=== PATIENT | female | born 1995 | race Caucasian/White ===

== ENCOUNTER 2016-07-26 00:39 | Emergency (ER) | payer MEDICAID, OTHER, SELFPAY ==
[~2016-07-26] VITALS: Ht 165.1 cm; Wt 59.0 kg
[~2016-07-26 00:39] MED LIST: ACET50TA PO; IBUP-1114 PO; IBUP600T26 PO; INDERAL PO; METH1VL IV; MIRA255PW PO; PRENTAB9 PO; SENO8.6T9 PO
[2016-07-26 02:29] LABS: CONTROL LINE UCG INT CTR LINE PRESENT
[2016-07-26 02:46] LABS: ANION GAP 11 MEQ/L (8-16); BLOOD UREA NITROGEN 15 MG/DL (7-18); CALCIUM LEVEL 8.5 MG/DL (8.5-10.1); CARBON DIOXIDE LEVEL 26 MEQ/L (21-32); CHLORIDE LEVEL 108 MEQ/L (98-107); CREATININE FOR GFR 0.85 MG/DL (0.55-1.02); GLUCOSE, FASTING 93 MG/DL (70-105); POTASSIUM SERUM 4.1 MEQ/L (3.5-5.1); SODIUM LEVEL 145 MEQ/L (136-145)
[2016-07-26 04:23] VITALS: BP 116/72
--- NOTE | 2016-07-26 20:27 | ECGEPIP ---
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
== END 2016-07-26 04:24 | disposition home or self-care (01) ==
LOC: EDBD 00:39 → M ED 03:09
DX: F41.9 Anxiety disorder, unspecified (principal); R55 Syncope and collapse; Z88.1 Allergy status to other antibiotic agents; Z79.899 Other long term (current) drug therapy

== ENCOUNTER 2016-08-06 20:52 | Emergency (ER) | payer OTHER, SELFPAY ==
[~2016-08-06] VITALS: Ht 165.1 cm; Wt 59.0 kg
[2016-08-06 20:56] VITALS: BP 116/60
[2016-08-06] MEDS ORDERED: PENI250T57 PO (22:10)
[2016-08-06] MEDS ORDERED: NAPROXEN 250 MG TAB PO ONE (22:15)
[2016-08-06] MEDS ORDERED: PENICILLIN V POTASSIUM 500 MG TAB PO ONE (22:15)
== END 2016-08-06 22:38 | disposition home or self-care (01) ==
LOC: M ED 22:32
DX: K04.7 Periapical abscess without sinus (principal); R68.84 Jaw pain; F41.9 Anxiety disorder, unspecified; F32.9 Major depressive disorder, single episode, unspecified; J45.909 Unspecified asthma, uncomplicated; N31.9 Neuromuscular dysfunction of bladder, unspecified; Z87.442 Personal history of urinary calculi; Z87.440 Personal history of urinary (tract) infections; Z88.1 Allergy status to other antibiotic agents

== ENCOUNTER → 2016-08-24 | Outpatient (CLI) | payer OTHER ==
[~2016-08-24] MED LIST changes: +PENI250T57 PO
--- NOTE | 2016-08-24 19:00 | REPUSA ---
Clinical history: bleeding. Findings: Real-time transabdominal and transvaginal ultrasound images of the pelvis were obtained. An anteverted uterus is noted, measuring 7.6 x 3.5 x 5.0 cm. The uterus demonstrates normal echotexture and echogenicity. The endometrial stripe measures 4 mm and is within normal limits. The right ovary measures 3.5 x 1.3 x 2.3 cm. The left ovary measures 2.9 x 2.7 I 2.5 cm. There is a simple left ovari an cyst measuring 1.8 x 1.2 x 1.8 cm. No adnexal masses are seen. Color Doppler flow is seen within b oth ovaries. There is trace amount of free fluid in the cul-de-sac. Impression: Grossly unremarkable ultrasound examination of the pelvis. Simple left ovarian cyst. Phys iologic free fluid in the cul-de-sac.
== END ==
LOC: M RAD 18:04
PROVIDERS: ATTEND Pediatrics
DX: N93.9 Abnormal uterine and vaginal bleeding, unspecified (principal); R10.84 Generalized abdominal pain; N85.4 Malposition of uterus; N83.202 Unspecified ovarian cyst, left side

== ENCOUNTER 2016-12-12 10:23 | Emergency (ER) | payer OTHER ==
[~2016-12-12] VITALS: Ht 165.1 cm; Wt 65.0 kg
[2016-12-12] MEDS ORDERED: NEXP1IMP SC (10:43)
[2016-12-12] MEDS ORDERED: IBUPROFEN 600 MG TAB PO ONE (11:15)
[2016-12-12 11:42] LABS: BASO % 0.6 % (0.0-1.0); EOS % 0.8 % (0.0-3.0); LARGE UNSTAINED CELL # 0.1 K/mm3 (0.0-0.4); LARGE UNSTAINED CELL % 2.1 % (0.0-4.0); LYMPH # 2.1 K/mm3 (1.5-6.5); LYMPH % 38.7 % (24.0-44.0); MEAN CORPUSCULAR HEMOGLOBIN 27.1 pg (27.0-33.0); MEAN CORPUSCULAR HGB CONC 33.8 g/dl (32.0-36.5); MEAN CORPUSCULAR VOLUME 80.2 fl (80.0-96.0); MONO # 0.3 K/mm3 (0.0-0.8); MONO % 5.2 % (0.0-5.0); NEUTROPHILS # 2.7 K/mm3 (1.8-7.7); NEUTROPHILS % 52.6 % (36.0-66.0); PLATELET COUNT, AUTOMATED 293 k/mm3 (150-450); RED CELL DISTRIBUTION WIDTH 14.6 % (11.5-14.5); WHITE BLOOD COUNT 5.1 K/mm3 (4.0-10.0)
[2016-12-12 11:58] LABS: ANION GAP 6 MEQ/L (8-16); BLOOD UREA NITROGEN 10 MG/DL (7-18); CALCIUM LEVEL 9.9 MG/DL (8.5-10.1); CARBON DIOXIDE LEVEL 28 MEQ/L (21-32); CHLORIDE LEVEL 107 MEQ/L (98-107); CREATININE FOR GFR 0.79 MG/DL (0.55-1.02); GLUCOSE, FASTING 92 MG/DL (70-105); POTASSIUM SERUM 4.3 MEQ/L (3.5-5.1); SODIUM LEVEL 141 MEQ/L (136-145)
[2016-12-12 12:21] VITALS: BP 121/63
--- NOTE | 2016-12-12 12:22 | REP ---
PA and lateral chest: Comparisons are 08/09/2014 and 02/10/2014. The lung duncan are clear. The cardiac size is normal The anna, mediastinum, and bony thorax are unremarkable. Impression: Negative PA and lateral chest. There is no interval change. Signed by Je Tim MD 12/12/2016 12:14 P
--- NOTE | 2016-12-13 11:17 | ECGEPIP ---
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
== END 2016-12-12 13:03 | disposition home or self-care (01) ==
LOC: M ED 10:23
DX: R07.89 Other chest pain (principal); M54.9 Dorsalgia, unspecified; N31.9 Neuromuscular dysfunction of bladder, unspecified; F32.9 Major depressive disorder, single episode, unspecified; F41.9 Anxiety disorder, unspecified; R51 Headache; Z88.1 Allergy status to other antibiotic agents

== ENCOUNTER → 2016-12-13 | Outpatient (CLI) | payer OTHER ==
[~2016-12-13] MED LIST changes: +NEXP1IMP SC
--- NOTE | 2016-12-14 16:26 | ECHO ---
DATE OF PROCEDURE: 12/13/2016 REFERRING PHYSICIAN: Dr. Елена King INDICATION: Chest pain, unspecified, shortness of breath. HEIGHT: 65 inches. WEIGHT: 139 pounds. MEASUREMENTS: Ventricular septum: 0.85 cm Posterior wall: 0.76 cm Left ventricle diastole: 4.3 cm Left atrium: 2.8 cm Aortic root: 2.6 cm Aortic annulus: 2.2 cm Inferior vena cava: 1.5 cm (more than 50% respiratory variation). DOPPLER MEASUREMENTS: Aortic valve velocity: 119 cm/s LVOT velocity: 87.2 cm/s LVOT VTI: 17.5 cm Mitral E velocity: 81.4 cm/s Mitral A velocity: 43.4 cm/s Mitral deceleration time: 173 ms Very mild tricuspid regurgitation. Trace pulmonic regurgitation. Pulmonary artery systolic pressure 19 mmHg by pulmonary acceleration time method. MITRAL ANNULAR TISSUE DOPPLER: E prime septal: 12.9 cm/s E prime lateral: 19.2 cm/s DESCRIPTION: Rhythm was sinus. Image quality was adequate. This is a 2D, m-mode, color flow Doppler and pulsed wave Doppler examination and included mitral annular tissue Doppler. CONCLUSIONS: 1. Very small pericardial effusion seen posteriorly. No diastolic chamber collapse. 2. Otherwise normal appearing echocardiogram Doppler. 3. Normal left ventricle, internal dimensions and wall thickness, normal LV wall motion and wall thickening. Normal LV systolic function. Left ventricular ejection fraction (LVEF) 60% by visual estimate. Normal LV diastolic function.
== END ==
LOC: M CARPUL 15:47
PROVIDERS: ATTEND Pediatrics
DX: R07.9 Chest pain, unspecified (principal); R06.02 Shortness of breath; J90 Pleural effusion, not elsewhere classified

== ENCOUNTER → 2017-04-12 | Outpatient (CLI) | payer OTHER, SELFPAY ==
--- NOTE | 2017-04-12 13:52 | REP ---
Clinical: Trauma. Sprain. Technique: AP, lateral, bilateral oblique views of the left ankle. Findings: Mild swelling. No acute fracture or dislocation. Joint spaces and ankle mortise are intact. No subcutaneous emphysema or foreign body. Impression: Mild swelling. No fracture. Signed by Dion West MD 04/12/2017 01:43 P
== END ==
LOC: M WUC 11:01
PROVIDERS: ATTEND Physician Assistant
DX: S93.422A Sprain of deltoid ligament of left ankle, initial encounter (principal); W18.30XA Fall on same level, unspecified, initial encounter; Y92.009 Unspecified place in unspecified non-institutional (private) residence as the place of occurrence of the external cause

== ENCOUNTER → 2017-07-22 | Outpatient (REF) | payer OTHER ==
[2017-07-22 19:48] LABS: APPEARANCE, URINE MANUAL HAZY (CLEAR); BILIRUBIN, URINE MANUAL NEGATIVE (NEGATIVE); BLOOD URINE MANUAL TRACE (NEGATIVE); COLOR, URINE MANUAL YELLOW (YELLOW); GLUCOSE, URINE (UA) MANUAL NEGATIVE (NEGATIVE); KETONE, URINE MANUAL NEGATIVE (NEGATIVE); LEUKOCYTE ESTERASE, URINE MAN TRACE (NEGATIVE); MICROSCOPIC INDICATED? MAN YES (NO); NITRITE, URINE MANUAL POSITIVE (NEGATIVE); PROTEIN, URINE MANUAL NEGATIVE (NEGATIVE); UROBILINOGEN, URINE MANUAL NORMAL (NORMAL)
[2017-07-22 19:50] LABS: AMORPHOUS SEDIMENT, URINE SMALL AMOUNT (NEGATIVE); BACTERIA, URINE LARGE AMOUNT; HYALINE CAST, URINE NONE SEEN /lpf (0-1); MICROSCOPIC EXAM PERFORMED; MUCUS, URINE SMALL AMOUNT (NEGATIVE); RBC, URINE 0-1 /hpf (0-3); SQUAMOUS EPITHELIAL CELL URINE MOD AMOUNT /hpf (SMALL AMT); WBC, URINE 30-40 /hpf (0-3)
== END ==
LOC: M LAB REF 16:56
DX: R53.81 Other malaise (principal)

== ENCOUNTER → 2017-07-22 | Outpatient (CLI) | payer OTHER | LOC: M RAD 16:59 | DX: R05 Cough (principal) ==

== ENCOUNTER → 2017-07-22 | Outpatient (REF) | payer OTHER | LOC: M LAB REF 17:55 | DX: J02.9 Acute pharyngitis, unspecified (principal) ==

== ENCOUNTER → 2017-07-26 | Outpatient (CLI) | payer OTHER | LOC: M RAD 11:15 | DX: B34.2 Coronavirus infection, unspecified (principal) ==

== ENCOUNTER 2017-07-28 13:07 | Emergency (ER) | payer OTHER ==
[2017-07-28] MEDS: ONDANSETRON 4MG/2ML VIAL (J2405) IV ×2 (13:45→14:00)
[2017-07-28 13:46] LABS: BASO # 0.1 10^3/uL (0.0-0.2); BASO % 0.8 % (0.0-1.0); EOS # 0.1 10^3/uL (0.0-0.50); EOS % 0.8 % (0.0-3.0); HEMATOCRIT 36.4 % (36.0-47.0); HEMOGLOBIN 12.1 g/dl (12.0-16.0); IMMATURE GRANULOCYTE % 0.7 % (0-3.0); LYMPH # 3.2 10^3/uL (1.5-6.5); LYMPH % 37.1 % (24.0-44.0); MEAN CORPUSCULAR HEMOGLOBIN 29.2 pg (27.0-33.0); MEAN CORPUSCULAR HGB CONC 33.2 g/dl (32.0-36.5); MEAN CORPUSCULAR VOLUME 87.7 fl (80.0-96.0); MONO # 0.5 10^3/uL (0.0-0.8); MONO % 6.3 % (0.0-5.0); NEUTROPHILS # 4.7 10^3/uL (1.8-7.7); NEUTROPHILS % 54.3 % (36.0-66.0); PLATELET COUNT, AUTOMATED 332 10^3/uL (150-450); RED BLOOD COUNT 4.15 10^6/uL (4.00-5.40); RED CELL DISTRIBUTION WIDTH 12.5 % (11.5-14.5); WHITE BLOOD COUNT 8.6 10^3/uL (4.0-10.0)
[2017-07-28] MEDS: KETOROLAC 30 MG/ML VIAL (J1885) IV (13:46)
[2017-07-28] MEDS: NS 1,000 ML IV (13:46)
[2017-07-28 13:53] LABS: CONTROL LINE UCG INT CTR LINE PRESENT; URINE PREG TEST NEGATIVE (NEGATIVE)
[2017-07-28 13:55] LABS: BILIRUBIN, URINE MANUAL NEGATIVE (NEGATIVE); BLOOD URINE MANUAL RFX POSITIVE (NEGATIVE); GLUCOSE, URINE (UA) MANUAL NEGATIVE (NEGATIVE); KETONE, URINE MANUAL NEGATIVE (NEGATIVE); MICROSCOPIC EXAM QNS; NITRITE, URINE MANUAL RFX NEGATIVE (NEGATIVE); PROTEIN, URINE MANUAL REFLEX 1+ mg/dL (NEGATIVE); URINE COMMENT Y; UROBILINOGEN, URINE MANUAL NORMAL (NORMAL)
[2017-07-28 14:13] LABS: ALBUMIN 3.6 GM/DL (3.2-5.2); ALBUMIN/GLOBULIN RATIO 1.06 (1.00-1.93); ALKALINE PHOSPHATASE 72 U/L (45-117); ALT/SGPT 22 U/L (12-78); ANION GAP 6 MEQ/L (8-16); AST/SGOT 8 U/L (7-37); BILIRUBIN,DIRECT < 0.1 MG/DL (0.0-0.2); BILIRUBIN,TOTAL 0.2 MG/DL (0.2-1.0); BLOOD UREA NITROGEN 12 MG/DL (7-18); CALCIUM LEVEL 8.5 MG/DL (8.5-10.1); CARBON DIOXIDE LEVEL 27 MEQ/L (21-32); CHLORIDE LEVEL 110 MEQ/L (98-107); CREATININE FOR GFR 0.89 MG/DL (0.55-1.30); GLUCOSE, FASTING 91 MG/DL (70-100); LIPASE 135 U/L (73-393); POTASSIUM SERUM 3.8 MEQ/L (3.5-5.1); SODIUM LEVEL 143 MEQ/L (136-145)
[2017-07-28 15:04] LABS: CALCIUM OXALATE CRYSTALS RFX SMALL; KETONE, URINE AUTO RFX NEGATIVE (NEGATIVE); LEUKOCYTE ESTERASE UR AUTO RFX NEGATIVE (NEGATIVE); MUCUS, URINE RFX LARGE (NEGATIVE); NITRITE, URINE AUTO RFX NEGATIVE (NEGATIVE); RBC, URINE AUTO RFX 31 /HPF (0-3); SQUAM EPITHELIAL CELL UR AURFX 1 /HPF (0-6); WBC, URINE AUTO RFX 6 /HPF (0-3)
[2017-07-28] MEDS: NORCO, ANEXSIA 5/325MG TABLET (HYDROcodone/ACETAMINOPHEN) PO (15:16)
== END 2017-07-28 15:18 | disposition home or self-care (01) ==
LOC: M ED 13:07
DX: N20.1 Calculus of ureter (principal); R10.32 Left lower quadrant pain; R11.2 Nausea with vomiting, unspecified; F32.9 Major depressive disorder, single episode, unspecified; R51 Headache; Z87.442 Personal history of urinary calculi; Z79.899 Other long term (current) drug therapy; Z88.1 Allergy status to other antibiotic agents
CPT/HCPCS: J2405

== ENCOUNTER → 2017-07-29 | Outpatient (CLI) | payer OTHER | LOC: M EKG 16:51 | DX: R07.9 Chest pain, unspecified (principal) | CPT/HCPCS: 93005 ==

== ENCOUNTER → 2017-07-31 | Outpatient (CLI) | payer OTHER | LOC: M CARPUL 13:30 | DX: R07.9 Chest pain, unspecified (principal) | CPT/HCPCS: 93306 ==

== ENCOUNTER → 2017-08-01 | Outpatient (REF) | payer OTHER ==
[2017-08-01 20:31] LABS: APPEARANCE, URINE MANUAL CLEAR (CLEAR); COLOR, URINE MANUAL COLORLESS (YELLOW)
[2017-08-01 20:32] LABS: BILIRUBIN, URINE MANUAL NEGATIVE (NEGATIVE); BLOOD URINE MANUAL POSITIVE (NEGATIVE); GLUCOSE, URINE (UA) MANUAL NEGATIVE (NEGATIVE); KETONE, URINE MANUAL NEGATIVE (NEGATIVE); LEUKOCYTE ESTERASE, URINE MAN NEGATIVE (NEGATIVE); MICROSCOPIC INDICATED? MAN YES (NO); NITRITE, URINE MANUAL NEGATIVE (NEGATIVE); PROTEIN, URINE MANUAL NEGATIVE (NEGATIVE); SPECIFIC GRAVITY,URINE MANUAL 1.005 (1.002-1.035); UROBILINOGEN, URINE MANUAL NORMAL (NORMAL)
[2017-08-01 21:20] LABS: SQUAMOUS EPITHELIAL CELL URINE SMALL AMOUNT /hpf (SMALL AMT); WBC, URINE 0-1 /hpf (0-3)
[2017-08-01 21:21] LABS: MUCUS, URINE SMALL AMOUNT (NEGATIVE)
[2017-08-01 21:22] LABS: BACTERIA, URINE NONE SEEN; HYALINE CAST, URINE NONE SEEN /lpf (0-1); MICROSCOPIC EXAM PERFORMED
== END ==
LOC: M LAB REF 17:05
DX: N20.0 Calculus of kidney (principal)

== ENCOUNTER 2017-09-27 14:06 | Emergency (ER) | payer OTHER | END 2017-09-27 15:29 | disposition home or self-care (01) | LOC: M ED 14:06 | DX: S40.012A Contusion of left shoulder, initial encounter (principal); S10.93XA Contusion of unspecified part of neck, initial encounter; W01.10XA Fall on same level from slipping, tripping and stumbling with subsequent striking against unspecified object, initial encounter; Y92.099 Unspecified place in other non-institutional residence as the place of occurrence of the external cause; Y93.9 Activity, unspecified; Y99.9 Unspecified external cause status; Z88.1 Allergy status to other antibiotic agents | CPT/HCPCS: 73030 ==

== ENCOUNTER 2018-02-10 20:58 | Emergency (ER) | payer OTHER ==
[2018-02-10 22:18] LABS: KETONE, URINE AUTO RFX TRACE mg/dL (NEGATIVE); LEUKOCYTE ESTERASE UR AUTO RFX NEGATIVE (NEGATIVE); NITRITE, URINE AUTO RFX NEGATIVE (NEGATIVE); RBC, URINE AUTO RFX 0 /HPF (0-3); SPECIFIC GRAVITY UR AUTO RFX 1.003 (1.002-1.035); SQUAM EPITHELIAL CELL UR AURFX 0 /HPF (0-6); WBC, URINE AUTO RFX 1 /HPF (0-3)
[2018-02-11] MEDS: ACETAMINOPHEN TAB 650MG DOSE (2X325MG) PO (00:48)
[2018-02-11] MEDS: NS 1,000 ML IV (00:48)
[2018-02-11 00:56] LABS: BASO # 0.1 10^3/uL (0.0-0.2); BASO % 0.7 % (0.0-1.0); EOS # 0.1 10^3/uL (0.0-0.50); EOS % 0.8 % (0.0-3.0); HEMATOCRIT 38.8 % (36.0-47.0); IMMATURE GRANULOCYTE % 0.2 % (0-3.0); LYMPH % 34.2 % (24.0-44.0); MEAN CORPUSCULAR HGB CONC 33.5 g/dl (32.0-36.5); MEAN CORPUSCULAR VOLUME 86.6 fl (80.0-96.0); MONO # 0.6 10^3/uL (0.0-0.8); MONO % 6.8 % (0.0-5.0); NEUTROPHILS % 57.3 % (36.0-66.0); PLATELET COUNT, AUTOMATED 296 10^3/uL (150-450); RED BLOOD COUNT 4.48 10^6/uL (4.00-5.40); RED CELL DISTRIBUTION WIDTH 12.6 % (11.5-14.5); WHITE BLOOD COUNT 8.8 10^3/uL (4.0-10.0)
[2018-02-11 01:20] LABS: ANION GAP 6 MEQ/L (8-16); BLOOD UREA NITROGEN 11 MG/DL (7-18); CALCIUM LEVEL 8.9 MG/DL (8.5-10.1); CARBON DIOXIDE LEVEL 25 MEQ/L (21-32); CHLORIDE LEVEL 106 MEQ/L (98-107); CREATININE FOR GFR 0.77 MG/DL (0.55-1.30); GLOMERULAR FILTRATION RATE > 60.0 (>60); GLUCOSE, FASTING 84 MG/DL (70-100); HCG, SERUM QUANTITATIVE 10040 MIU/ML; SODIUM LEVEL 137 MEQ/L (136-145)
== END 2018-02-11 02:02 | disposition home or self-care (01) ==
LOC: M ED 20:58
DX: S30.1XXA Contusion of abdominal wall, initial encounter (principal); W50.0XXA Accidental hit or strike by another person, initial encounter; Y92.219 Unspecified school as the place of occurrence of the external cause; Z33.1 Pregnant state, incidental
CPT/HCPCS: 76801

== ENCOUNTER → 2018-02-28 | Outpatient (CLI) | payer OTHER ==
[2018-02-28 18:27] LABS: BASO # 0.1 10^3/uL (0.0-0.2); BASO % 0.7 % (0.0-1.0); EOS % 0.4 % (0.0-3.0); HEMATOCRIT 37.5 % (36.0-47.0); HEMOGLOBIN 12.5 g/dl (12.0-15.5); IMMATURE GRANULOCYTE % 0.2 % (0-3.0); LYMPH # 1.7 10^3/uL (1.5-6.5); LYMPH % 20.5 % (24.0-44.0); MEAN CORPUSCULAR HEMOGLOBIN 29.4 pg (27.0-33.0); MEAN CORPUSCULAR HGB CONC 33.3 g/dl (32.0-36.5); MEAN CORPUSCULAR VOLUME 88.2 fl (80.0-96.0); MONO # 0.5 10^3/uL (0.0-0.8); MONO % 5.9 % (0.0-5.0); NEUTROPHILS # 5.8 10^3/uL (1.8-7.7); NEUTROPHILS % 72.3 % (36.0-66.0); PLATELET COUNT, AUTOMATED 294 10^3/uL (150-450); RED BLOOD COUNT 4.25 10^6/uL (4.00-5.40); RED CELL DISTRIBUTION WIDTH 12.9 % (11.5-14.5); WHITE BLOOD COUNT 8.1 10^3/uL (4.0-10.0)
[2018-02-28 22:45] LABS: CHLAMYDIA DNA AMPLIFICATION POSITIVE (NEGATIVE); GC DNA AMPLIFICATION NEGATIVE (NEGATIVE)
[2018-03-03 10:46] LABS: HBsAg Prenatal NEGATIVE (NEGATIVE); HIV 1&2 SCREEN CENTAUR NEGATIVE (NEGATIVE); RUBELLA IgG QUALITATIVE IMMUNE (IMMUNE)
[2018-03-03 10:46] LABS: HEPATITIS C VIRUS ABY INDEX < 0.0 INDEX (<0.8)
== END ==
LOC: M SMT 10:56
DX: Z34.81 Encounter for supervision of other normal pregnancy, first trimester (principal); Z3A.09 9 weeks gestation of pregnancy
CPT/HCPCS: 86762

== ENCOUNTER 2018-03-24 13:32 | Emergency (ER) | payer OTHER ==
[2018-03-24 14:55] LABS: BASO % 0.4 % (0.0-1.0); EOS % 0.3 % (0.0-3.0); HEMATOCRIT 35.1 % (36.0-47.0); IMMATURE GRANULOCYTE % 0.4 % (0-3.0); LYMPH % 22.1 % (24.0-44.0); MEAN CORPUSCULAR HEMOGLOBIN 29.9 pg (27.0-33.0); MEAN CORPUSCULAR HGB CONC 34.2 g/dl (32.0-36.5); MEAN CORPUSCULAR VOLUME 87.3 fl (80.0-96.0); MONO # 0.5 10^3/uL (0.0-0.8); MONO % 5.1 % (0.0-5.0); NEUTROPHILS # 6.5 10^3/uL (1.8-7.7); NEUTROPHILS % 71.7 % (36.0-66.0); PLATELET COUNT, AUTOMATED 268 10^3/uL (150-450); RED BLOOD COUNT 4.02 10^6/uL (4.00-5.40); RED CELL DISTRIBUTION WIDTH 13.1 % (11.5-14.5)
[2018-03-24 14:57] LABS: KETONE, URINE AUTO RFX 1+ mg/dL (NEGATIVE); MUCUS, URINE RFX SMALL (NEGATIVE); NITRITE, URINE AUTO RFX NEGATIVE (NEGATIVE); RBC, URINE AUTO RFX 3 /HPF (0-3); SPECIFIC GRAVITY UR AUTO RFX 1.014 (1.002-1.035); SQUAM EPITHELIAL CELL UR AURFX 6 /HPF (0-6)
[2018-03-24 14:58] LABS: LEUKOCYTE ESTERASE UR AUTO RFX 3+ (NEGATIVE); WBC, URINE AUTO RFX 14 /HPF (0-3)
[2018-03-24 15:29] LABS: ANION GAP 7 MEQ/L (8-16); BLOOD UREA NITROGEN 6 MG/DL (7-18); CARBON DIOXIDE LEVEL 24 MEQ/L (21-32); CHLORIDE LEVEL 106 MEQ/L (98-107); CREATININE FOR GFR 0.52 MG/DL (0.55-1.30); GLOMERULAR FILTRATION RATE > 60.0 (>60); GLUCOSE, FASTING 76 MG/DL (70-100); POTASSIUM SERUM 4.3 MEQ/L (3.5-5.1); SODIUM LEVEL 137 MEQ/L (136-145)
[2018-03-24] MEDS: NS 1,000 ML IV (16:04)
[2018-03-24] MEDS: METOCLOPRAMIDE INJ 10MG/2ML VIAL (J2765) IV (16:04)
== END 2018-03-24 17:48 | disposition home or self-care (01) ==
LOC: M ED 13:32
DX: O23.41 Unspecified infection of urinary tract in pregnancy, first trimester (principal); Z3A.12 12 weeks gestation of pregnancy; Z88.1 Allergy status to other antibiotic agents
CPT/HCPCS: J2765

== ENCOUNTER → 2018-03-25 | Outpatient (REF) | payer OTHER ==
[2018-03-25 15:49] LABS: CHLAMYDIA DNA AMPLIFICATION NEGATIVE (NEGATIVE); GC DNA AMPLIFICATION NEGATIVE (NEGATIVE)
== END ==
LOC: M LAB REF 13:13
DX: Z34.81 Encounter for supervision of other normal pregnancy, first trimester (principal); Z36.89 Encounter for other specified antenatal screening

== ENCOUNTER 2018-05-11 11:51 | Emergency (ER) | payer OTHER ==
[~2018-05-11] VITALS: Ht 167.6 cm; Wt 68.2 kg
[~2018-05-11 11:51] MED LIST changes: +ALBU83IN; +AMOX/K; +MACR100C43 PO; +MAPA500T2 PO; +NAPR-50 PO; +NITR100C2; +NORCOTAB PO; +PRED20TA; +PRENMIS3 PO; +REGL10TA6 PO; +ZOFR4TAB14 PO
[2018-05-11 13:08] LABS: BASO % 0.3 % (0.0-1.0); EOS # 0.1 10^3/uL (0.0-0.50); HEMATOCRIT 35.5 % (36.0-47.0); HEMOGLOBIN 11.8 g/dl (12.0-15.5); LYMPH # 1.9 10^3/uL (1.5-6.5); LYMPH % 21.1 % (24.0-44.0); MEAN CORPUSCULAR HEMOGLOBIN 30.2 pg (27.0-33.0); MEAN CORPUSCULAR HGB CONC 33.2 g/dl (32.0-36.5); MEAN CORPUSCULAR VOLUME 90.8 fl (80.0-96.0); MONO # 0.6 10^3/uL (0.0-0.8); MONO % 6.2 % (0.0-5.0); NEUTROPHILS # 6.3 10^3/uL (1.8-7.7); NEUTROPHILS % 70.7 % (36.0-66.0); PLATELET COUNT, AUTOMATED 287 10^3/uL (150-450); RED BLOOD COUNT 3.91 10^6/uL (4.00-5.40); WHITE BLOOD COUNT 8.9 10^3/uL (4.0-10.0)
[2018-05-11 13:29] LABS: ALBUMIN 3.2 GM/DL (3.2-5.2); ALT/SGPT 13 U/L (12-78); BILIRUBIN,TOTAL 0.3 MG/DL (0.2-1.0); BLOOD UREA NITROGEN 7 MG/DL (7-18); CALCIUM LEVEL 8.5 MG/DL (8.5-10.1); CARBON DIOXIDE LEVEL 25 MEQ/L (21-32); CHLORIDE LEVEL 107 MEQ/L (98-107); CREATININE FOR GFR 0.61 MG/DL (0.55-1.30); GLOMERULAR FILTRATION RATE > 60.0 (>60); GLUCOSE, FASTING 78 MG/DL (70-100); POTASSIUM SERUM 4.3 MEQ/L (3.5-5.1); SODIUM LEVEL 139 MEQ/L (136-145); TOTAL PROTEIN 6.3 GM/DL (6.4-8.2)
--- NOTE | 2018-05-11 14:20 | REP ---
Clinical: well-being. Abdominal pain. Comparison: 02/10/2018 . Findings: Examination demonstrates a single live intrauterine in breech presentation. motion is identified by technologist. Placenta is noted anterior and grade 0 without evidence for placenta previa or abruption. Amniotic fluid volume is normal. Cervix measures 4.0 cm in length and appears closed. Gestational age by LMP 19 weeks 2 days with ELISABET 10/03/2018 . FHR equals 143 beats per minute. Impression: Single live intrauterine in breech presentation. No gross abnormality identified. Amniotic fluid volume within normal limits. Electronically Signed by Dion West MD 05/11/2018 02:12 P
--- NOTE | 2018-05-11 14:23 | REP ---
Clinical: with Right lower quadrant pain. Technique: Real time walters scale and color evaluation using curved array transducer including Doppler evaluation of the bilateral maternal ovaries. Findings: Left ovary is normal in appearance and vascularity without torsion and measures 4.0 x 1.6 x 2.9 cm; RI 0.46. The right adnexa demonstrates prominent vasculature extending along the right lateral fundal region of the uterus which are nonspecific. The appendix is not visualized. No obvious free fluid is appreciated. Suspected right ovary measures 2.5 x 0.8 x 1.7 cm and demonstrates appropriate vascularity. Impression: 1. Appendix not visualized. No free fluid. 2. Normal appearance to the left ovary without torsion. Suspected right ovary appears normal. Electronically Signed by Dion West MD 05/11/2018 02:16 P
[2018-05-11 15:06] LABS: CHLAMYDIA DNA AMPLIFICATION NEGATIVE (NEGATIVE); GC DNA AMPLIFICATION NEGATIVE (NEGATIVE)
[2018-05-11 15:34] VITALS: BP 99/58
== END 2018-05-11 15:49 | disposition home or self-care (01) ==
LOC: M ED 11:51
DX: O26.892 Other specified pregnancy related conditions, second trimester (principal); R10.2 Pelvic and perineal pain; O99.342 Other mental disorders complicating pregnancy, second trimester; F33.9 Major depressive disorder, recurrent, unspecified; F41.9 Anxiety disorder, unspecified; O99.89 Other specified diseases and conditions complicating pregnancy, childbirth and the puerperium; N31.9 Neuromuscular dysfunction of bladder, unspecified; Z3A.19 19 weeks gestation of pregnancy; Z88.1 Allergy status to other antibiotic agents

== ENCOUNTER → 2018-06-19 | Outpatient (CLI) | payer OTHER ==
--- NOTE | 2018-06-19 17:40 | REP ---
Obstetric ultrasound for anatomy: There is a single intrauterine gestation in a vertex presentation. There is motion and cardiac activity. The heart rate is 139 beats per minute. The placenta is anterior. There is no placenta previa. The placenta is grade zero maturity. The amniotic fluid volume subjectively is normal. The cervix measures 3.7 cm length. By the ultrasound today gestational age is 24 weeks 3 days with an ELISABET of 10/06/2018. By LMP gestational age is 24 weeks 6 days with an ELISABET of 10/03/2018. weight is 745 grams (1 pound 16 ounces). This is the 43rd percentile for 24 weeks 6 days. The following anatomic structures are identified and are unremarkable: Cranium Choroid plexus Cavum septum pellucidum. Cerebellum Face Upper lip. Lungs Four-chamber heart. Left cardiac ventricular outflow tracts. Diaphragm. Stomach. Cord insertion. Three-vessel cord. Kidneys Bladder Spine Upper lower extremities. The following anatomic structures are not optimally demonstrated because of position: upper lip. Facial profile A followup study dedicated to these structures might be considered. Otherwise, there are no anomalies. Electronically Signed by Je Tim MD 06/19/2018 05:32 P
== END ==
LOC: M RAD 15:53
PROVIDERS: ATTEND Advanced Practice Midwife
DX: Z34.82 Encounter for supervision of other normal pregnancy, second trimester (principal)

== ENCOUNTER → 2018-06-21 | Outpatient (REF) | payer OTHER | LOC: M LAB REF 12:18 | PROVIDERS: ATTEND Physician Assistant | DX: J02.9 Acute pharyngitis, unspecified (principal) ==

== ENCOUNTER → 2018-07-14 | Outpatient (CLI) | payer OTHER ==
[2018-07-14 14:33] LABS: BASO # 0.1 10^3/uL (0.0-0.2); BASO % 0.4 % (0.0-1.0); EOS # 0.1 10^3/uL (0.0-0.50); EOS % 0.6 % (0.0-3.0); HEMATOCRIT 32.5 % (36.0-47.0); HEMOGLOBIN 10.6 g/dl (12.0-15.5); LYMPH # 1.9 10^3/uL (1.5-6.5); MEAN CORPUSCULAR HEMOGLOBIN 30.1 pg (27.0-33.0); MEAN CORPUSCULAR HGB CONC 32.6 g/dl (32.0-36.5); MEAN CORPUSCULAR VOLUME 92.3 fl (80.0-96.0); MONO # 0.8 10^3/uL (0.0-0.8); MONO % 6.4 % (0.0-5.0); NEUTROPHILS # 8.7 10^3/uL (1.8-7.7); NEUTROPHILS % 74.8 % (36.0-66.0); PLATELET COUNT, AUTOMATED 286 10^3/uL (150-450); RED BLOOD COUNT 3.52 10^6/uL (4.00-5.40); WHITE BLOOD COUNT 11.6 10^3/uL (4.0-10.0)
== END ==
LOC: M LAB 12:50
PROVIDERS: ATTEND Advanced Practice Midwife
DX: Z34.82 Encounter for supervision of other normal pregnancy, second trimester (principal)

== ENCOUNTER 2018-07-26 11:32 | Outpatient (CLI) | payer OTHER ==
[~2018-07-26] VITALS: Ht 167.6 cm; Wt 75.4 kg
== END 2018-07-26 13:26 | disposition home or self-care (01) ==
LOC: M LDO 11:32
PROVIDERS: ATTEND Specialist
DX: O26.893 Other specified pregnancy related conditions, third trimester (principal); R10.30 Lower abdominal pain, unspecified; Z3A.30 30 weeks gestation of pregnancy
CPT/HCPCS: 59025; G0378; G0463

== ENCOUNTER → 2018-09-10 | Outpatient (CLI) | payer OTHER ==
[~2018-09-10] MED LIST changes: -ACET50TA PO; +HYDR-3715 PO; +MAPA500T17 PO; -MIRA255PW PO; -NAPR-50 PO; +NAPR-837 PO; -NORCOTAB PO; +POLY1POW4 PO
== END ==
LOC: M LAB 12:57
PROVIDERS: ATTEND Advanced Practice Midwife
DX: Z34.83 Encounter for supervision of other normal pregnancy, third trimester (principal); Z3A.00 Weeks of gestation of pregnancy not specified

== ENCOUNTER 2018-09-12 14:56 | Outpatient (CLI) | payer OTHER ==
[~2018-09-12] VITALS: Ht 167.6 cm; Wt 79.7 kg
[~2018-09-12 14:56] MED LIST changes: +TAMSULOSIN 0.4 MG CAP PO SCH
[2018-09-12 15:17] VITALS: BP 124/60
[2018-09-12] MEDS ORDERED: MAPA500T2 PO (15:22)
[2018-09-12] MEDS ORDERED: ACETAMINOPHEN 500 MG TAB PO PRN (15:45)
[2018-09-12] MEDS ORDERED: LACTATED RINGER'S 1000 ML IV ONE (16:00)
[2018-09-12 18:42] LABS: APPEARANCE, URINE CLEAR (CLEAR); BACTERIA, URINE AUTO NEGATIVE (NEGATIVE); BILIRUBIN, URINE AUTO NEGATIVE (NEGATIVE); BLOOD, URINE BLOOD 1+ (NEGATIVE); COLOR, URINE YELLOW (YELLOW); GLUCOSE, URINE (UA) AUTO NEGATIVE (NEGATIVE); KETONE, URINE AUTO NEGATIVE (NEGATIVE); LEUKOCYTE ESTERASE, URINE AUTO NEGATIVE (NEGATIVE); MUCUS, URINE SMALL (NEGATIVE); NITRITE, URINE AUTO NEGATIVE (NEGATIVE); PROTEIN, URINE AUTO NEGATIVE (NEGATIVE); RBC, URINE AUTO 26 /HPF (0-3); SPECIFIC GRAVITY URINE AUTO 1.019 (1.002-1.035); SQUAMOUS EPITHELIAL CELL UR AU 4 /HPF (0-6); UROBILINOGEN, URINE AUTO 0.2 mg/dL (0.0-2.0); WBC, URINE AUTO 3 /HPF (0-3)
[2018-09-12 19:09] VITALS: BP 118/57
[2018-09-12] MEDS ORDERED: PROMETHAZINE INJ 25 MG/ML VIAL (J2550) IV ONE (19:15)
[2018-09-12] MEDS ORDERED: BUTORPHANOL 2 MG/ML INJ (J0595) IV ONE (19:15)
--- NOTE | 2018-09-12 19:47 | IPN ---
DATE: 09/12/2018 Rhea is a 22-year-old 2, para 1-0-0-1 at 37 weeks gestation, estimated date of confinement (EDC ) of 10/03/2018 based on last menstrual period and confirmed by first trimester ultrasound. She presents to labor and delivery today following evaluation in the office as an outpatient for complaint of lower left back pain in the sacral area, started last night. Currently the pain is a scale of 5 out of 10. She denies any regular contractions, vaginal bleeding and leakage of fluid. The fetus has been active. She denies any urinary signs or symptoms. She denies any unusual vaginal discharge, odor, irritation. Her care was initiated at [facility] in the first trimester. course complicated by positive chlamydia that was treated during this and a test of cure on 03/25/2018 was negative. OBSTETRICAL HISTORY: January 2016: 38-4/7 weeks, 7 pound 7 ounce male, spontaneous vaginal delivery. OBSTETRIC LABS: A+, antibody screen negative, rubella immune, VDRL nonreactive. Urine culture no growth. Hepatitis B surface antigen negative. HIV negative. Hepatitis C antibody nonreactive. Initial gonorrhea and chlamydia: Chlamydia positive. Gonorrhea negative. Test of cure negative Chlamydia, negative gonorrhea. She did not have any genetic screening labs done. Her gestational diabetic screening was normal at 105. GBS is negative. PAST MEDICAL HISTORY. Negative. SURGERIES: None. FAMILY HISTORY: Kidney disease, liver disease, depression, anxiety and asthma. SOCIAL HISTORY: The patient is , father of the baby is at bedside and supportive. She is a nonsmoker. Denies alcohol and drug use. No history of abuse - physical, sexual or emotional. Positive history of chlamydia. ALLERGIES: DOXYCYCLINE. CURRENT MEDICATIONS: vitamin. OBJECTIVE: Temperature 98.1, pulse 92, respirations 20, blood pressure is 124/60. heart rate is 130 with moderate variability, positive accelerations, no decelerations. There is no pattern of regular contractions. Sterile vaginal exam was done in the office. She was 3-4 cm dilated, 80% effaced, -3 station. She has undergone renal ultrasound that demonstrates a moderate right-sided hydronephrosis with an intrarenal calculus upper pole of the right kidney measuring 6 x 5 x 8 mm. Her UA: Blood 1+ and RBCs 26. CBC: White count 11.6, hemoglobin 9.4, hematocrit 29.1, platelets 286. Potassium 4.3. ASSESSMENT: Intrauterine at 37 weeks. heart rate category one. Renal calculi. PLAN: IV hydration, Flomax by mouth, some IV pain medications at this time, nonstress test (NST) every 12 hours. Observe. The patient and her partner have had all their questions answered and agree with the plan. BASIL
[2018-09-13 02:59] VITALS: BP 121/58
== END 2018-09-13 03:40 | disposition home or self-care (01) ==
LOC: M LDO 14:56
PROVIDERS: ATTEND Advanced Practice Midwife
DX: O26.893 Other specified pregnancy related conditions, third trimester (principal); Z3A.37 37 weeks gestation of pregnancy; Z87.442 Personal history of urinary calculi
CPT/HCPCS: 59025; 81001; 96374; 96375; G0378; G0463; J0595

== ENCOUNTER → 2018-09-12 | Outpatient (CLI) | payer OTHER ==
--- NOTE | 2018-09-12 14:06 | REP ---
RENAL ULTRASOUND: Real-time sonographic evaluation of kidneys performed. Kidneys are normal in size and echotexture, right kidney measuring 11.8 x 4.9 x 4.7 cm and left kidney 11.9 x 5.2 x 5.5 cm. There is moderate right hydronephrosis. Calculus in the upper pole of the right renal collecting system measures 6 x 5 x 8 mm. No left hydronephrosis or nephrolithiasis is seen. Urinary bladder is empty. Patient is 37 weeks and the fetus has a heart rate of 124 beats per minute. IMPRESSION: Moderate right hydronephrosis. Intrarenal calculus upper pole right kidney measures 6 x 5 x 8 mm. Electronically Signed by Je Galindo MD 09/15/2018 01:38 P
[2018-09-12 14:29] LABS: HEMATOCRIT 29.1 % (36.0-47.0); HEMOGLOBIN 9.4 g/dl (12.0-15.5); MEAN CORPUSCULAR HEMOGLOBIN 28.5 pg (27.0-33.0); MEAN CORPUSCULAR HGB CONC 32.3 g/dl (32.0-36.5); MEAN CORPUSCULAR VOLUME 88.2 fl (80.0-96.0); PLATELET COUNT, AUTOMATED 286 10^3/uL (150-450); WHITE BLOOD COUNT 11.6 10^3/uL (4.0-10.0)
[2018-09-12 14:54] LABS: ALBUMIN 2.8 GM/DL (3.2-5.2); BLOOD UREA NITROGEN 7 MG/DL (7-18); CALCIUM LEVEL 8.4 MG/DL (8.5-10.1); CARBON DIOXIDE LEVEL 21 MEQ/L (21-32); CHLORIDE LEVEL 108 MEQ/L (98-107); CREATININE FOR GFR 0.48 MG/DL (0.55-1.30); GLOMERULAR FILTRATION RATE > 60.0 (>60); GLUCOSE, FASTING 66 MG/DL (70-100); PHOSPHORUS LEVEL 3.3 MG/DL (2.5-4.9); POTASSIUM SERUM 4.3 MEQ/L (3.5-5.1); SODIUM LEVEL 139 MEQ/L (136-145)
== END ==
LOC: M RAD 12:47
PROVIDERS: ATTEND Advanced Practice Midwife
DX: Z34.83 Encounter for supervision of other normal pregnancy, third trimester (principal); Z3A.00 Weeks of gestation of pregnancy not specified; N20.0 Calculus of kidney; N13.1 Hydronephrosis with ureteral stricture, not elsewhere classified

== ENCOUNTER → 2018-09-12 | Outpatient (REF) | payer OTHER | LOC: M LAB REF 13:25 | PROVIDERS: ATTEND Advanced Practice Midwife | DX: Z34.83 Encounter for supervision of other normal pregnancy, third trimester (principal) ==

== ENCOUNTER 2018-09-24 16:01 | Inpatient (IN) | payer OTHER, MEDICAID ==
[~2018-09-24] VITALS: Ht 167.6 cm; Wt 79.4 kg
[~2018-09-24 16:01] MED LIST changes: -TAMSULOSIN 0.4 MG CAP PO SCH
[2018-09-24 16:10] VITALS: BP 120/58
[2018-09-24] MEDS ORDERED: LR 1,000 ML IV SCH (16:24)
[2018-09-24] MEDS ORDERED: LACTATED RINGER'S 1000 ML IV STA (16:24)
[2018-09-24] MEDS ORDERED: OXYTOCIN 30 UNITS IN 0.9% NaCl 500ML IV BAG (J2590) As Ordered ONE ×2 (16:33→17:52)
[2018-09-24 16:34] VITALS: BP 120/58
--- NOTE | 2018-09-24 17:00 | HPE ---
DATE OF ADMISSION: 09/24/2018 Rhea is a 22-year-old 2, para 1-0-0-1 at 38-5/7 weeks gestation with an estimated date of confinement (EDC) of 10/03/2018 based on last menstrual period and confirmed by first trimester ultrasound. She presents to labor and delivery today with report of onset of uncomfortable contractions at 1400. She reports some old bloody show. Denies leakage of fluid. The fetus has been active. Her care was initiated at [facility] in the first trimester. Her course complicated by a positive Chlamydia during her with a test of cure on 03/25/2018 that is negative and a renal calculi recently. OBSTETRICAL HISTORY: January 2016 38-4/7 weeks, 7-pound, 7-ounce male, spontaneous vaginal delivery. OBSTETRIC LABORATORY DATA: A+, antibody screen negative, rubella immune, VDRL nonreactive. Urine culture no growth. Hepatitis B surface antigen negative, HIV negative. Hepatitis C nonreactive. Initial chlamydia positive with a test of cure negative. Gonorrhea negative. She did decline genetic serum screening laboratories. Gestational diabetic screen normal at 105. GBS is negative. PAST MEDICAL HISTORY: Renal calculi. SURGERIES: None. FAMILY HISTORY: Kidney disease, liver disease, depression, anxiety and asthma. SOCIAL HISTORY: The patient is single. However, father of the baby is at bedside as well as some family members and they are supportive. She is a nonsmoker. Denies alcohol and drug use. No history of abuse, physical, sexual or emotional and a positive history of chlamydia. ALLERGIES: DOXYCYLINE. CURRENT MEDICATIONS: vitamin. OBJECTIVE: Vital signs have not been recorded at this time. Her blood pressure is 120/58, pulse 83. She is alert and oriented times three. She appears very uncomfortable with her contractions. She is crying and moaning through them. heart rate is 140 with moderate variability, positive accelerations noted. No decelerations noted. Contractions are about every three minutes. They palpate strong. Her abdomen is gravid. Estimated weight 7-1/2 pounds, cephalic presentation. Sterile vaginal examination: By RNSrinivas, 5 cm dilated, 100% effaced, 0 station. ASSESSMENT: Intrauterine at 38-5/7 weeks, heart rate category 1, active labor. PLAN: Admit the patient to labor and delivery. Out of bed ad matthew. Clear liquid diet. Routine laboratories. IV fluid bolus. The patient is considering an epidural for her labor coping at this time. I do anticipate continued progress and a normal spontaneous vaginal delivery.
[2018-09-24 17:07] LABS: HEMOGLOBIN 9.4 g/dl (12.0-15.5); MEAN CORPUSCULAR HEMOGLOBIN 28.1 pg (27.0-33.0); MEAN CORPUSCULAR HGB CONC 32.4 g/dl (32.0-36.5); MEAN CORPUSCULAR VOLUME 86.8 fl (80.0-96.0); PLATELET COUNT, AUTOMATED 281 10^3/uL (150-450); RED BLOOD COUNT 3.34 10^6/uL (4.00-5.40); WHITE BLOOD COUNT 16.1 10^3/uL (4.0-10.0)
[2018-09-24] MEDS ORDERED: FENTANYL 2MCG/ML ROPIVACAINE 0.2% IN 0.9% NACL 100ML IVBAG As Ordered ONE (17:28)
[2018-09-24] MEDS ORDERED: ePHEDrine SULFATE 25 MG/5 ML(5MG/ML) SYRINGE IV PRN (18:15)
[2018-09-24] MEDS ORDERED: EPIDURAL/PCA KEYS XX PRN (18:15)
[2018-09-24] MEDS ORDERED: LACTATED RINGER'S 1000 ML IV PRN (18:15)
[2018-09-24] MEDS ORDERED: NALOXONE INJ 0.4 MG/1 ML VIAL (J2310) IV PRN (18:15)
[2018-09-24] MEDS ORDERED: ONDANSETRON 4MG/2ML VIAL (J2405) IV PRN (18:15)
[2018-09-24] MEDS ORDERED: EPIDURAL COMMENT XX SCH (18:15)
[2018-09-24] MEDS ORDERED: REFRIGERATOR IV KEYS XX PRN (18:15)
[2018-09-24] MEDS ORDERED: diphenhydrAMINE INJ 50MG/ML VIAL (J1200) IV PRN (18:15)
[2018-09-24] MEDS ORDERED: FENTANYL/ROPIVACAINE/NACL BAG 100 ML EPIDURAL SCH (18:15)
[2018-09-24 18:22] VITALS: BP 106/63
[2018-09-24 18:32] LABS: CORD GAS ABE A -5.7; CORD GAS HCO3 A 22.1 MEQ/L; CORD GAS O2 SAT A < 15.0 %; CORD GAS PCO2 A 51.7 mmHg; CORD GAS PH A 7.248 UNITS; CORD GAS PO2 A < 10.0 mmHg; CORD GAS TCO2 A 23.6 MEQ/L
[2018-09-24 18:48] VITALS: BP 123/80
[2018-09-24] MEDS ORDERED: OXYTOCIN DRIP 30 UNITS in APPROPRIATE DILUENT 1 EA IV SCH (18:48)
[2018-09-24 18:50] LABS: CORD GAS ABE V -6.8; CORD GAS HCO3 V 19.3 MEQ/L; CORD GAS O2 SAT V 28.4 %; CORD GAS PCO2 V 40.5 mmHg; CORD GAS PH V 7.295 UNITS; CORD GAS PO2 V 14.4 mmHg; CORD GAS SBC V 17.4 MEQ/L; CORD GAS TCO2 V 20.5 MEQ/L
[2018-09-24] MEDS ORDERED: RHOGAM 300 MCG (1500 IU) INJ (J2790) IM SCH (19:00)
[2018-09-24] MEDS ORDERED: ACETAMINOPHEN TAB 650MG DOSE (2X325MG) PO PRN (19:00)
[2018-09-24] MEDS ORDERED: DOCUSATE SODIUM 100 MG CAP PO PRN (19:00)
[2018-09-24] MEDS ORDERED: LIDOCAINE 1% MDV 20ML VIAL INFIL ONE (19:00)
[2018-09-24] MEDS ORDERED: DIBUCAINE 1% OINTMENT 30GM TOP PRN (19:00)
[2018-09-24] MEDS ORDERED: METHYLERGONOVINE MALEATE 0.2 MG TAB PO PRN (19:00)
[2018-09-24] MEDS ORDERED: IBUPROFEN 800 MG TAB PO PRN (19:00)
[2018-09-24] MEDS ORDERED: ACETAMINOPHEN 500 MG TAB PO PRN (19:00)
[2018-09-24] MEDS ORDERED: MEASLES,MUMPS,RUBELLA VACCINE INJ (MMR-II) (90707) SC SCH (19:00)
[2018-09-24] MEDS ORDERED: IBUPROFEN 600 MG TAB PO PRN (19:00)
--- NOTE | 2018-09-24 20:29 | DN ---
DATE OF DELIVERY: 09/24/2018 Rhea is a 22-year-old 2, para 2-0-0-2 now who was admitted to labor and delivery in active labor. She coped with her labor physiologically. She reached full dilation at 1816 hours. She pushed to a normal spontaneous vaginal delivery of a live female infant in right occiput anterior (LORI) position with restitution to left occiput transverse (LOT) position at 1822 hours. There was no nuchal cord. The shoulders delivered with gentle downward traction and the corpus immediately followed. The 's mouth and nares were bulb suctioned. She was placed on maternal abdomen crying and active. The cord was clamped times two and cut by the father of the baby under my direction. Cord gases and cord blood was obtained. A spontaneous expulsion of an intact placenta with three-vessel cord by Matos mechanism was at 1827 hours. Uterine hemostasis was achieved with IV Pitocin rapid infusion and uterine fundal massage. Estimated blood loss 350 mL. Perineum and vagina inspected and noted to have a first-degree midline laceration. The laceration was infiltrated with 1% lidocaine and repaired with #3-0 Rapide in the usual fashion. Arterial cord gas 7.248, base access -5.7. Venous cord gas is pending. female weighed 3670 grams, 8 pounds 1 ounce. 8 and 9. The family have named her Rosie and the mother is going to breastfeed her daughter. At the close of delivery lap counts, needle counts and instrument counts were correct and verified.
[2018-09-24 21:14] VITALS: BP 119/78
[2018-09-25 06:18] VITALS: BP 106/56
[2018-09-25] MEDS: PRENATAL VITAMINS CHEWABLE TABLET PO SCH (09:29)
[2018-09-25 18:00] VITALS: BP 118/62
[2018-09-26 06:00] VITALS: BP 97/52
[2018-09-26] MEDS ORDERED: IBUP-1114 PO (08:33)
[2018-09-26] MEDS ORDERED: MAPA500T2 PO (08:33)
[2018-09-26] MEDS: PRENATAL VITAMINS CHEWABLE TABLET PO SCH (09:31)
[2018-09-26] MEDS ORDERED: ADACEL/BOOSTRIX VACCINE (DIPHTH/PERTUSS/ACELL/TETANUS)0.5ML SYR (90715) IM ONE (09:45)
== END 2018-09-26 15:15 | disposition home or self-care (01) | DRG 560 ==
LOC: M LDO 16:01 → M LDI 16:21 → M OBS 20:15
PROVIDERS: ADMIT Advanced Practice Midwife; ATTEND Advanced Practice Midwife
PROC: 10E0XZZ Delivery of Products of Conception, External Approach (ICD-10-PCS; principal; 2018-09-24)
PROC: 0HQ9XZZ Repair Perineum Skin, External Approach (ICD-10-PCS; 2018-09-24)
DX: O70.0 First degree perineal laceration during delivery (principal); Z37.0 Single live birth; Z3A.38 38 weeks gestation of pregnancy

== ENCOUNTER 2018-10-26 12:40 | Emergency (ER) | payer OTHER ==
[~2018-10-26] VITALS: Ht 167.6 cm; Wt 69.2 kg
[2018-10-26] MEDS ORDERED: KETOROLAC 30 MG/ML VIAL (J1885) IV ONE (13:15)
[2018-10-26] MEDS ORDERED: ONDANSETRON 4MG/2ML VIAL (J2405) IV ONE (13:15)
[2018-10-26] MEDS ORDERED: NS 1,000 ML IV ONE (13:15)
[2018-10-26 13:19] LABS: BASO # 0.1 10^3/uL (0.0-0.2); BASO % 0.8 % (0.0-1.0); EOS # 0.2 10^3/uL (0.0-0.50); EOS % 2.3 % (0.0-3.0); HEMATOCRIT 35.5 % (36.0-47.0); LYMPH # 2.6 10^3/uL (1.5-6.5); LYMPH % 32.8 % (24.0-44.0); MEAN CORPUSCULAR HEMOGLOBIN 26.6 pg (27.0-33.0); MEAN CORPUSCULAR VOLUME 85.7 fl (80.0-96.0); MONO # 0.7 10^3/uL (0.0-0.8); MONO % 9.1 % (0.0-5.0); NEUTROPHILS # 4.3 10^3/uL (1.8-7.7); NEUTROPHILS % 54.6 % (36.0-66.0); PLATELET COUNT, AUTOMATED 293 10^3/uL (150-450); RED BLOOD COUNT 4.14 10^6/uL (4.00-5.40); WHITE BLOOD COUNT 7.9 10^3/uL (4.0-10.0)
[2018-10-26 13:21] LABS: URINE PREG TEST NEGATIVE (NEGATIVE)
[2018-10-26 13:54] LABS: ALBUMIN 3.3 GM/DL (3.2-5.2); ALT/SGPT 19 U/L (12-78); BILIRUBIN,DIRECT < 0.1 MG/DL (0.0-0.2); BILIRUBIN,TOTAL 0.2 MG/DL (0.2-1.0); BLOOD UREA NITROGEN 15 MG/DL (7-18); CALCIUM LEVEL 8.4 MG/DL (8.5-10.1); CARBON DIOXIDE LEVEL 27 MEQ/L (21-32); CHLORIDE LEVEL 109 MEQ/L (98-107); CREATININE FOR GFR 0.86 MG/DL (0.55-1.30); GLOMERULAR FILTRATION RATE > 60.0 (>60); GLUCOSE, FASTING 85 MG/DL (70-100); LIPASE 125 U/L (73-393); POTASSIUM SERUM 4.4 MEQ/L (3.5-5.1); SODIUM LEVEL 145 MEQ/L (136-145); TOTAL PROTEIN 6.8 GM/DL (6.4-8.2)
--- NOTE | 2018-10-26 14:14 | REP ---
CT ABDOMEN AND PELVIS WITHOUT CONTRAST: HISTORY: Right flank pain. COMPARISON: 07/28/2017 The gallbladder is contracted. There is moderate to marked dilatation of the right renal collecting system and proximal ureter. This is secondary to an 8 mm calculus present in the proximal ureter at the L3 level. Calcification is present in the left kidney consistent with nephrolithiasis. The liver, pancreas, spleen, and adrenal glands are normal in appearance. There is no mass, adenopathy or free fluid. The visualized lungs are clear. The urinary bladder and uterus are normal in appearance. IMPRESSION: 1. There is an 8 mm calculus in the proximal right ureter at the L3 level. There is moderate to marked hydronephrosis. 2. Left nephrolithiasis. Electronically Signed by Evert Rader MD 10/26/2018 02:22 P
[2018-10-26] MEDS ORDERED: PERC5TAB12 PO (14:23)
[2018-10-26] MEDS ORDERED: ZOFR4TAB16 PO (14:23)
[2018-10-26 14:27] VITALS: BP 123/62
== END 2018-10-26 14:30 | disposition home or self-care (01) ==
LOC: M ED 12:40
DX: N21.1 Calculus in urethra (principal); N20.1 Calculus of ureter; N20.0 Calculus of kidney; J45.909 Unspecified asthma, uncomplicated; N31.9 Neuromuscular dysfunction of bladder, unspecified; F60.9 Personality disorder, unspecified; Z88.0 Allergy status to penicillin
CPT/HCPCS: 74176; 80048; 80076; 81001; 83690; 84703; 85025; 96374; 96375; 99284; J1885; J2405

== ENCOUNTER → 2018-10-28 | Outpatient (REF) | payer OTHER ==
[~2018-10-28] MED LIST changes: +PERC5TAB12 PO; +ZOFR4TAB16 PO
[2018-10-28 18:38] LABS: APPEARANCE, URINE CLEAR (CLEAR); BACTERIA, URINE AUTO NEGATIVE (NEGATIVE); BILIRUBIN, URINE AUTO NEGATIVE (NEGATIVE); BLOOD, URINE BLOOD 1+ (NEGATIVE); COLOR, URINE STRAW (YELLOW); GLUCOSE, URINE (UA) AUTO NEGATIVE (NEGATIVE); KETONE, URINE AUTO NEGATIVE (NEGATIVE); LEUKOCYTE ESTERASE, URINE AUTO TRACE (NEGATIVE); MUCUS, URINE SMALL (NEGATIVE); NITRITE, URINE AUTO NEGATIVE (NEGATIVE); PROTEIN, URINE AUTO NEGATIVE (NEGATIVE); RBC, URINE AUTO 16 /HPF (0-3); SPECIFIC GRAVITY URINE AUTO 1.009 (1.002-1.035); SQUAMOUS EPITHELIAL CELL UR AU 1 /HPF (0-6); UROBILINOGEN, URINE AUTO 0.2 mg/dL (0.0-2.0); WBC, URINE AUTO 6 /HPF (0-3)
== END ==
LOC: M SMT 17:41
PROVIDERS: ATTEND Nurse Practitioner Women's Health
DX: N13.2 Hydronephrosis with renal and ureteral calculous obstruction (principal)

== ENCOUNTER 2018-11-04 18:50 | Emergency (ER) | payer OTHER ==
[~2018-11-04] VITALS: Ht 167.6 cm; Wt 68.2 kg
[2018-11-04] MEDS ORDERED: KETOROLAC 30 MG/ML VIAL (J1885) IV ONE (19:15)
[2018-11-04] MEDS ORDERED: NS 1,000 ML IV ONE (19:15)
[2018-11-04] MEDS ORDERED: ONDANSETRON 4MG/2ML VIAL (J2405) IV ONE (19:15)
[2018-11-04 19:42] LABS: BASO % 0.3 % (0.0-1.0); EOS % 0.1 % (0.0-3.0); HEMATOCRIT 37.8 % (36.0-47.0); HEMOGLOBIN 11.8 g/dl (12.0-15.5); LYMPH # 1.2 10^3/uL (1.5-6.5); LYMPH % 9.5 % (24.0-44.0); MEAN CORPUSCULAR HEMOGLOBIN 26.7 pg (27.0-33.0); MEAN CORPUSCULAR HGB CONC 31.2 g/dl (32.0-36.5); MEAN CORPUSCULAR VOLUME 85.5 fl (80.0-96.0); MONO # 0.6 10^3/uL (0.0-0.8); MONO % 4.5 % (0.0-5.0); NEUTROPHILS # 10.5 10^3/uL (1.8-7.7); NEUTROPHILS % 85.2 % (36.0-66.0); PLATELET COUNT, AUTOMATED 293 10^3/uL (150-450); RED BLOOD COUNT 4.42 10^6/uL (4.00-5.40); WHITE BLOOD COUNT 12.3 10^3/uL (4.0-10.0)
[2018-11-04 20:17] LABS: ALBUMIN 4.1 GM/DL (3.2-5.2); BILIRUBIN,DIRECT 0.2 MG/DL (0.0-0.2); BILIRUBIN,TOTAL 0.5 MG/DL (0.2-1.0); TOTAL PROTEIN 7.7 GM/DL (6.4-8.2)
[2018-11-04] MEDS ORDERED: KETO10TAB PO (21:44)
[2018-11-04 21:53] VITALS: BP 120/67
--- NOTE | 2018-11-05 10:32 | REP ---
Acute abdominal series four views including PA chest, two abdomen upright views of the abdomen, supine view: PA chest: Comparison is 07/26/2017. The lung duncan are clear. Cardiac size is normal. The anna, mediastinum, skeletal structures are unremarkable. There is no free subdiaphragmatic air. There is no interval change. Impression: Negative PA chest. Abdomen, supine upright views: The bowel gas pattern is normal. There is a calcification on the right at the level of the L3 inferior endplate, similar in position of the abdomen and pelvis CT scan dated 10/26/2018. There are phleboliths in the pelvis on the left, unchanged. 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 Impression: Right ureteral calculus as described, unchanged in location. Phleboliths in the pelvis on the left. 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 Electronically Signed by Je Tim MD 11/05/2018 10:23 A
== END 2018-11-04 21:54 | disposition home or self-care (01) ==
LOC: M ED 18:50
DX: N21.1 Calculus in urethra (principal); Z87.442 Personal history of urinary calculi; Z87.440 Personal history of urinary (tract) infections; Z88.1 Allergy status to other antibiotic agents
CPT/HCPCS: 74021; 80047; 80076; 83690; 84702; 85025; 96361; 96374; 96375; 99284; J1885; J2405

== ENCOUNTER → 2018-11-05 | Outpatient (CLI) | payer OTHER ==
[~2018-11-05] MED LIST changes: +KETO10TAB PO
[2018-11-05 15:48] LABS: HEMATOCRIT 32.7 % (36.0-47.0); HEMOGLOBIN 10.1 g/dl (12.0-15.5); MEAN CORPUSCULAR HGB CONC 30.9 g/dl (32.0-36.5); MEAN CORPUSCULAR VOLUME 84.3 fl (80.0-96.0); PLATELET COUNT, AUTOMATED 281 10^3/uL (150-450); RED BLOOD COUNT 3.88 10^6/uL (4.00-5.40); WHITE BLOOD COUNT 5.7 10^3/uL (4.0-10.0)
[2018-11-05 15:58] LABS: INR 1.14; PROTHROMBIN TIME 14.3 SECONDS (11.8-14.0)
[2018-11-05 15:59] LABS: PARTIAL THROMBOPLASTIN TIME 26.3 SECONDS (25.0-38.4)
[2018-11-05 16:15] LABS: BLOOD UREA NITROGEN 16 MG/DL (7-18); CARBON DIOXIDE LEVEL 30 MEQ/L (21-32); CHLORIDE LEVEL 108 MEQ/L (98-107); CREATININE FOR GFR 0.94 MG/DL (0.55-1.30); GLOMERULAR FILTRATION RATE > 60.0 (>60); GLUCOSE, FASTING 78 MG/DL (70-100); POTASSIUM SERUM 4.4 MEQ/L (3.5-5.1); SODIUM LEVEL 143 MEQ/L (136-145)
[2018-11-05 16:55] LABS: HCG, SERUM QUALITATIVE NEGATIVE (NEGATIVE)
== END ==
LOC: M LAB 15:13
PROVIDERS: ATTEND Nurse Practitioner Women's Health
DX: N13.2 Hydronephrosis with renal and ureteral calculous obstruction (principal)

== ENCOUNTER 2018-11-06 11:16 | Day surgery (SDC) | payer OTHER ==
[~2018-11-06] VITALS: Ht 167.6 cm; Wt 69.4 kg
[2018-11-06] MEDS ORDERED: ONDANSETRON 4MG/2ML VIAL (J2405) As Ordered ONE (11:49)
[2018-11-06] MEDS ORDERED: dexameTHASONE 4 MG/ML 1ML VIAL (J1100) As Ordered ONE (11:49)
[2018-11-06] MEDS ORDERED: LIDOCAINE 2% INJ 100 MG/5 ML SDV (FOR ANES.) As Ordered ONE (11:50)
[2018-11-06] MEDS ORDERED: PROPOFOL 200 MG/20 ML VIAL As Ordered ONE (11:50)
[2018-11-06 11:54] LABS: URINE PREG TEST NEGATIVE (NEGATIVE)
[2018-11-06] MEDS ORDERED: LR 1,000 ML IV ONE (12:00)
[2018-11-06] MEDS ORDERED: MIDAZOLAM INJ 2 MG/2 ML VIAL (J2250) As Ordered ONE (12:25)
[2018-11-06] MEDS ORDERED: fentaNYL 100 MCG/2 ML INJECTION (J3010) As Ordered ONE (12:25)
[2018-11-06] MEDS ORDERED: CONRAY-60 60% 50ML VIAL (Q9961) As Ordered ONE (12:57)
[2018-11-06] MEDS ORDERED: ePHEDrine SULFATE 25 MG/5 ML(5MG/ML) SYRINGE As Ordered ONE (13:22)
[2018-11-06] MEDS ORDERED: ACETAMINOPHEN 1000MG 100ML IV BTL (OFIRMEV) (J0131 PER 10MG) As Ordered ONE (13:22)
[2018-11-06] MEDS ORDERED: PERCOCET 5MG/325MG TAB PO PRN ×2 (14:15)
[2018-11-06] MEDS ORDERED: oxyBUTYnin 5 MG TAB PO PRN (14:15)
--- NOTE | 2018-11-06 14:21 | REP ---
RETROGRADE PYELOGRAM: Two views. HISTORY: Kidney stone. 12 seconds of fluoroscopy time is reported. FINDINGS: A sequence of two last image hold fluoroscopically obtained spot radiographs of the right abdomen document right ureteral cannulation, contrast injection, and double pigtail stent placement. Electronically Signed by Landon Kelley MD 11/06/2018 02:24 P
[2018-11-06] MEDS ORDERED: fentaNYL 100 MCG/2 ML INJECTION (J3010) IV PRN (14:30)
[2018-11-06] MEDS ORDERED: ONDANSETRON 4MG/2ML VIAL (J2405) IV PRN (14:30)
[2018-11-06] MEDS ORDERED: LR 1,000 ML IV SCH (14:30)
[2018-11-06] MEDS ORDERED: oxyCODONE 5MG TAB PO PRN (14:30)
[2018-11-06 16:27] VITALS: BP 136/83
--- NOTE | 2018-11-08 09:52 | RO ---
DATE OF PROCEDURE: 11/06/2018 PREPROCEDURE DIAGNOSIS: Right ureteral stone. POSTPROCEDURE DIAGNOSIS: Right ureteral stone. PROCEDURE: Cystoscopy, right ureteroscopy with laser lithotripsy and basket extraction of stones, right retrograde pyelogram with intraoperative interpretation of images, right ureteral stent placement. SURGEON: Baldo Angelo MD HOME CARE CONSULTANT: None. ANESTHESIA: General. OPERATIVE INDICATIONS: This 22-year-old female was found to have an 8 mm obstructing right ureteral stone. Given the concern the stone was migrating distally, it was recommended not to do a shock wave lithotripsy and instead bring her to the operating room today for the above listed procedure. DESCRIPTION OF PROCEDURE: The patient was brought to the operating room and general anesthesia was induced. Prophylactic antibiotics were infused. She was then placed in dorsal lithotomy position, prepped and draped in the usual sterile fashion. A rigid cystoscope was inserted into the urethral meatus and advanced into the bladder. A Guidewire was advanced up the right collecting system. I then went up the right collecting system with a short semirigid ureteroscope and examined the distal to midureter and no stones were seen. I then removed the short semirigid ureteroscope. I then advanced a ureteral access sheath over the wire. I went up the access sheath with a flexible ureteroscope and within the proximal ureter the 8 mm stone was seen impacted. I then utilized a 272 micron laser fiber to fragment the stone into small pieces. All the fragments were then removed using a basket. I then went into the kidney and examined the kidney and no additional stones were seen. A retrograde pyelogram was performed, was notable for moderate to severe right hydronephrosis and no extravasation. I then went through the ureteroscope along with the access sheath and once again, no stones were seen within the ureter. I then utilized the wire to advance a 6 Brazilian by 22-32 cm JJ ureteral stent up to the right collecting system. The wire was removed and there were adequate curls of the stent in the right renal pelvis and in the bladder. The bladder was emptied of all fluids and this marked the conclusion of the procedure. The patient was taken out of dorsal lithotomy position, awakened from anesthesia and transferred to the recovery room in stable condition. ESTIMATED BLOOD LOSS: 5 mL. COMPLICATIONS: None. SPECIMENS: Kidney stone fragments. PLAN: The patient will follow-up in the clinic in 1-2 weeks for stent removal. BASIL
== END 2018-11-06 16:25 | disposition home or self-care (01) ==
LOC: M SDC 11:16
PROVIDERS: ATTEND Urology
DX: N13.2 Hydronephrosis with renal and ureteral calculous obstruction (principal); J45.909 Unspecified asthma, uncomplicated; G43.909 Migraine, unspecified, not intractable, without status migrainosus; F41.9 Anxiety disorder, unspecified; F32.9 Major depressive disorder, single episode, unspecified; Z88.1 Allergy status to other antibiotic agents; Z79.899 Other long term (current) drug therapy
CPT/HCPCS: 52356; 74420; 84703; 88300; C1769; C1894; C2617; J0131; J0690; J1100; J2250; J2405; J3010; Q9961

== ENCOUNTER 2019-05-20 00:27 | Emergency (ER) | payer OTHER ==
[~2019-05-20] VITALS: Ht 167.6 cm; Wt 68.2 kg
[2019-05-20 01:40] LABS: BASO # 0.1 10^3/uL (0.0-0.2); BASO % 0.9 % (0.0-1.0); EOS # 0.1 10^3/uL (0.0-0.5); HEMATOCRIT 39.7 % (36.0-47.0); HEMOGLOBIN 12.8 g/dl (12.0-15.5); LYMPH # 3.2 10^3/uL (1.5-5.0); LYMPH % 48.1 % (24.0-44.0); MEAN CORPUSCULAR HEMOGLOBIN 29.2 pg (27.0-33.0); MEAN CORPUSCULAR HGB CONC 32.2 g/dl (32.0-36.5); MEAN CORPUSCULAR VOLUME 90.4 fl (80.0-96.0); MONO # 0.5 10^3/uL (0.0-0.8); MONO % 7.7 % (0.0-5.0); NEUTROPHILS # 2.7 10^3/uL (1.5-8.5); NEUTROPHILS % 41.1 % (36.0-66.0); PLATELET COUNT, AUTOMATED 297 10^3/uL (150-450); RED BLOOD COUNT 4.39 10^6/uL (4.00-5.40); WHITE BLOOD COUNT 6.7 10^3/uL (4.0-10.0)
[2019-05-20 01:51] LABS: INR 1.05; PARTIAL THROMBOPLASTIN TIME 28.3 SECONDS (25.0-38.4); PROTHROMBIN TIME 13.4 SECONDS (11.8-14.0)
--- NOTE | 2019-05-20 01:51 | REPVR ---
PROCEDURE INFORMATION: Exam: CT Head Without Contrast Exam date and time: 05/20/2019 1:09 AM Age: 23 years old Clinical indication: Injury or trauma; Fall; Initial encounter; Concussion / head injury; Additional info: Syncope TECHNIQUE: Imaging protocol: Computed tomography of the head without contrast. Radiation optimization: All CT scans at this facility use at least one of these dose optimization techniques: automated exposure control; mA and/or kV adjustment per patient size (includes targeted exams where dose is matched to clinical indication); or iterative reconstruction. COMPARISON: CT Head without contrast 08/09/2014 10:05 AM FINDINGS: Brain: Normal. No hemorrhage. Unremarkable white matter. No mass effect. Ventricles: Normal. No ventriculomegaly. Bones/joints: Unremarkable. No acute fracture. Sinuses: Visualized sinuses are unremarkable. No fluid levels. Mastoid air cells: Visualized mastoid air cells are well aerated. Soft tissues: Unremarkable. IMPRESSION: No acute intracranial abnormality. Electronically signed by: Faisal Alanis On 05/20/2019 01:51:15 AM
--- NOTE | 2019-05-20 01:56 | REPVR ---
PROCEDURE INFORMATION: Exam: CT Cervical Spine Without Contrast Exam date and time: 05/20/2019 1:13 AM Age: 23 years old Clinical indication: Injury or trauma; Fall; Initial encounter; Concussion /head injury; Additional info: Fall down stairs, vertebral tenderness, dizziness TECHNIQUE: Imaging protocol: Computed tomography images of the cervical spine without contrast. Radiation optimization: All CT scans at this facility use at least one of these dose optimization techniques: automated exposure control; mA and/or kV adjustment per patient size (includes targeted exams where dose is matched to clinical indication); or iterative reconstruction. COMPARISON: CT Neck with contrast 08/23/2017 1:10 PM FINDINGS: Vertebrae: No acute fracture. Normal alignment. Discs/Spinal canal/Neural foramina: No spinal stenosis. No neural foraminal narrowing. Soft tissues: Unremarkable. Lungs: Lung apices are normal. IMPRESSION: No acute findings. Electronically signed by: Faisal Alanis On 05/20/2019 01:56:37 AM
[2019-05-20 02:00] LABS: AMPHETAMINES LEVEL URINE NEGATIVE (NEGATIVE); BARBITURATES URINE NEGATIVE (NEGATIVE); BENZODIAZEPINES URINE NEGATIVE (NEGATIVE); CANNABINOIDS URINE NEGATIVE (NEGATIVE); COCAINE METABOLITE URINE NEGATIVE (NEGATIVE); METHADONE URINE NEGATIVE (NEGATIVE); OPIATES URINE NEGATIVE (NEGATIVE); PHENCYCLIDINE URINE NEGATIVE (NEGATIVE)
[2019-05-20 02:16] LABS: BLOOD UREA NITROGEN 15 MG/DL (7-18); CALCIUM LEVEL 9.3 MG/DL (8.5-10.1); CARBON DIOXIDE LEVEL 28 MEQ/L (21-32); CHLORIDE LEVEL 106 MEQ/L (98-107); CK-MB VALUE MASS < 1.0 NG/ML (<3.6); CPK CREATINE PHOSPHOKINASE 73 U/L (26-192); CREATININE FOR GFR 0.75 MG/DL (0.55-1.30); FREE T4 0.83 NG/DL (0.76-1.46); GLOMERULAR FILTRATION RATE > 60.0 (>60); GLUCOSE, FASTING 87 MG/DL (70-100); HCG, SERUM QUANTITATIVE < 1.0 MIU/ML; MAGNESIUM LEVEL 2.3 MG/DL (1.8-2.4); MB/CK RELATIVE INDEX 1.37 (< OR =4); POTASSIUM SERUM 4.6 MEQ/L (3.5-5.1); SODIUM LEVEL 140 MEQ/L (136-145); TROPONIN I < 0.02 NG/ML (< 0.10)
[2019-05-20 02:17] LABS: ETHYL ALCOHOL (ETHANOL) < 0.003 % (0.000-0.010)
[2019-05-20 02:30] VITALS: BP 125/70
[2019-05-20] MEDS ORDERED: NS 1,000 ML IV ONE (02:30)
--- NOTE | 2019-05-20 08:21 | ECGEPIP ---
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
== END 2019-05-20 02:45 | disposition home or self-care (01) ==
LOC: M ED 00:27
DX: S06.0X1A Concussion with loss of consciousness of 30 minutes or less, initial encounter (principal); S16.1XXA Strain of muscle, fascia and tendon at neck level, initial encounter; R55 Syncope and collapse; W10.8XXA Fall (on) (from) other stairs and steps, initial encounter; Y92.89 Other specified places as the place of occurrence of the external cause; Z87.442 Personal history of urinary calculi; Z87.828 Personal history of other (healed) physical injury and trauma; Z88.1 Allergy status to other antibiotic agents
CPT/HCPCS: 70450; 72125; 80048; 80307; 81001; 82550; 82553; 83735; 84439; 84443; 84484; 84702; 85025; 85610; 85730; 93005; 93041; 94760; 99285; G0480

== ENCOUNTER 2019-05-21 13:15 | Emergency (ER) | payer OTHER ==
[2019-05-21 13:15] VITALS: BP 121/62
[2019-05-21] MEDS ORDERED: METAL LOCK LOOP XX ONE (14:29)
== END 2019-05-21 16:30 | disposition left against medical advice (07) ==
LOC: M ED 13:15
DX: Z53.21 Procedure and treatment not carried out due to patient leaving prior to being seen by health care provider (principal)

== ENCOUNTER → 2019-08-07 | Outpatient (CLI) | payer OTHER ==
[2019-08-07 17:34] LABS: HEMATOCRIT 41.4 % (36.0-47.0); HEMOGLOBIN 13.8 g/dl (12.0-15.5); MEAN CORPUSCULAR HGB CONC 33.3 g/dl (32.0-36.5); PLATELET COUNT, AUTOMATED 284 10^3/uL (150-450); WHITE BLOOD COUNT 6.9 10^3/uL (4.0-10.0)
[2019-08-07 18:13] LABS: HCG, SERUM QUALITATIVE NEGATIVE (NEGATIVE)
[2019-08-07 18:14] LABS: FREE T4 0.83 NG/DL (0.76-1.46)
== END ==
LOC: M LRY 15:34
PROVIDERS: ATTEND Nurse Practitioner Family
DX: N93.9 Abnormal uterine and vaginal bleeding, unspecified (principal)

== ENCOUNTER 2019-10-12 20:09 | Emergency (ER) | payer OTHER ==
[~2019-10-12] VITALS: Ht 167.6 cm; Wt 68.2 kg
[2019-10-12] MEDS ORDERED: ONDANSETRON 4 MG ORAL DISINTEGRATING TAB PO ONE (20:30)
[2019-10-12 22:22] VITALS: BP 130/71
--- NOTE | 2019-10-14 10:12 | REP ---
Head CT without contrast: Repeat dictation. History: Pain. Headache. Head injury and nausea. Preliminary report is provided at the time of the exam by niels ALVARADO. Comparison study: Comparison head CT study June 09, 2019. CT findings: Bone window settings demonstrate an intact bony calvarium. There is no evidence of skull fracture or incidental bony calvarial lesion. The visualized paranasal sinuses appear clear. No intraorbital abnormality is seen. On soft tissue window setting images; the lateral, third, and fourth ventricles are normal in size and position. Galindo-white differentiation pattern is normal above and below the tentorium. There are is no evidence of intracranial hemorrhage. No mass, edema, infarction, or midline shift is seen. No extra-axial fluid collection is appreciated. Impression: Negative noncontrast head CT. Electronically Signed by Landon Kelley MD 10/14/2019 10:03 A
== END 2019-10-12 22:23 | disposition home or self-care (01) ==
LOC: M ED 20:09
DX: S00.03XA Contusion of scalp, initial encounter (principal); W22.8XXA Striking against or struck by other objects, initial encounter; Y92.89 Other specified places as the place of occurrence of the external cause; Y99.0 Civilian activity done for income or pay; Z88.1 Allergy status to other antibiotic agents
CPT/HCPCS: 70450; 99283; Q0162

== ENCOUNTER 2019-12-31 05:55 | Emergency (ER) | payer OTHER, SELFPAY | END 2019-12-31 06:45 | disposition home or self-care (01) | LOC: M ED 05:55 | DX: S01.81XA Laceration without foreign body of other part of head, initial encounter (principal); W06.XXXA Fall from bed, initial encounter; Y92.092 Bedroom in other non-institutional residence as the place of occurrence of the external cause; Z88.1 Allergy status to other antibiotic agents ==

== ENCOUNTER 2020-02-22 12:18 | Emergency (ER) | payer OTHER, MEDICAID ==
[~2020-02-22] VITALS: Ht 167.6 cm; Wt 71.1 kg
[2020-02-22] MEDS ORDERED: MULTTAB20 PO (12:26)
[2020-02-22 13:27] LABS: HEMATOCRIT 34.8 % (36.0-47.0); HEMOGLOBIN 11.8 g/dl (12.0-15.5); MEAN CORPUSCULAR HGB CONC 33.9 g/dl (32.0-36.5); MEAN CORPUSCULAR VOLUME 88.5 fl (80.0-96.0); PLATELET COUNT, AUTOMATED 243 10^3/uL (150-450); RED BLOOD COUNT 3.93 10^6/uL (4.00-5.40); WHITE BLOOD COUNT 6.9 10^3/uL (4.0-10.0)
[2020-02-22 13:44] LABS: BLOOD UREA NITROGEN 7 MG/DL (7-18); CALCIUM LEVEL 9.3 MG/DL (8.5-10.1); CARBON DIOXIDE LEVEL 26 MEQ/L (21-32); CHLORIDE LEVEL 107 MEQ/L (98-107); CREATININE FOR GFR 0.62 MG/DL (0.55-1.30); GLOMERULAR FILTRATION RATE > 60.0 (>60); GLUCOSE, FASTING 84 MG/DL (70-100); POTASSIUM SERUM 4.3 MEQ/L (3.5-5.1); SODIUM LEVEL 137 MEQ/L (136-145)
[2020-02-22] MEDS ORDERED: NS 1,000 ML IV ONE (13:45)
[2020-02-22] MEDS ORDERED: METOCLOPRAMIDE INJ 10MG/2ML VIAL (J2765 PER 1) IV ONE (13:45)
--- NOTE | 2020-02-22 15:25 | REPVR ---
PROCEDURE INFORMATION: Exam: US First Trimester, Transabdominal Exam date and time: 02/22/2020 3:02 PM Age: 24 years old Clinical indication: Condition or disease; Lmp or gestational age (weeks): 10 weeks 5 days; Other: Nausea/ vomit; 3rd ; ; Additional info: Abd pain, n, v TECHNIQUE: Imaging protocol: Real-time transabdominal obstetrical ultrasound of the maternal pelvis and a first trimester , less than 14 weeks 0 days, with image documentation. COMPARISON: No relevant prior studies available. FINDINGS: Gestation: There is a live single intrauterine gestation. A yolk sac is present. Embryonic/ heart rate: heart rate is 163 bpm. Placenta: Unremarkable. No subchorionic bleed. Amniotic fluid: Amniotic fluid is normal for gestational age. BIOMETRY: Gestational age (AUA): Gestational age is 10 weeks 6 days by crown-rump length which is 3.9 cm. MATERNAL: Uterus: There may be a leiomyoma or contraction in the anterior fundal uterus measuring 2.8 x 3.9 x 1.8 cm. Cervix: Unremarkable. Right adnexa: Right ovary measures 3.3 x 2.0 x 1.9 cm. Arterial and venous flow are detected. Left adnexa: Left ovary measures 3.3 x 2.2 x 1.8 cm. Arterial and venous flow are detected. It contains a structure measuring 2.3 x 1.7 x 1.3 cm which may represent a corpus luteum. Intraperitoneal space: No intraperitoneal free fluid. IMPRESSION: Live single intrauterine gestation with ultrasound age of 10 weeks 6 days by crown-rump length with an ELISABET of 09/13/2020. Electronically signed by: Junie Skaggs On 02/22/2020 15:25:31 PM
[2020-02-22] MEDS ORDERED: ONDANSETRON 4MG/2ML VIAL IV ONE (15:30)
[2020-02-22] MEDS ORDERED: NS 500 ML IV ONE (15:30)
[2020-02-22] MEDS ORDERED: REGL10TA6 PO (15:50)
[2020-02-22 16:02] VITALS: BP 113/57
== END 2020-02-22 16:05 | disposition home or self-care (01) ==
LOC: M ED 12:18
DX: O34.81 Maternal care for other abnormalities of pelvic organs, first trimester (principal); O21.9 Vomiting of pregnancy, unspecified; O99.611 Diseases of the digestive system complicating pregnancy, first trimester; R19.7 Diarrhea, unspecified; Z87.42 Personal history of other diseases of the female genital tract; Z87.442 Personal history of urinary calculi; Z86.19 Personal history of other infectious and parasitic diseases; Z3A.10 10 weeks gestation of pregnancy; Z88.1 Allergy status to other antibiotic agents
CPT/HCPCS: 76801; 80048; 85027; 93976; 96361; 96374; 96375; 99283; J2405; J2765

== ENCOUNTER → 2020-03-02 | Outpatient (CLI) | payer OTHER, MEDICAID ==
[~2020-03-02] MED LIST changes: +MULTTAB20 PO
[2020-03-02 16:42] LABS: BASO % 0.3 % (0.0-1.0); EOS % 0.3 % (0.0-3.0); HEMOGLOBIN 12.3 g/dl (12.0-15.5); LYMPH # 1.8 10^3/uL (1.5-5.0); LYMPH % 20.6 % (24.0-44.0); MEAN CORPUSCULAR HEMOGLOBIN 29.3 pg (27.0-33.0); MEAN CORPUSCULAR HGB CONC 33.2 g/dl (32.0-36.5); MEAN CORPUSCULAR VOLUME 88.1 fl (80.0-96.0); MONO # 0.4 10^3/uL (0.0-0.8); MONO % 4.2 % (0.0-5.0); NEUTROPHILS # 6.5 10^3/uL (1.5-8.5); NEUTROPHILS % 74.3 % (36.0-66.0); PLATELET COUNT, AUTOMATED 269 10^3/uL (150-450); WHITE BLOOD COUNT 8.8 10^3/uL (4.0-10.0)
[2020-03-02 18:03] LABS: HIV 1&2 SCREEN CENTAUR NEGATIVE (NEGATIVE)
== END ==
LOC: M LAB 15:48
PROVIDERS: ATTEND Advanced Practice Midwife
DX: Z34.81 Encounter for supervision of other normal pregnancy, first trimester (principal); Z36.89 Encounter for other specified antenatal screening

== ENCOUNTER → 2020-04-25 | Outpatient (CLI) | payer OTHER, MEDICAID ==
--- NOTE | 2020-04-25 14:58 | REP ---
INDICATION: ANATOMY. COMPARISON: 02/22/2020. TECHNIQUE: Real-time sonographic evaluation of the gravid uterus performed. FINDINGS: Estimated gestational age is19 weeks 5 days, EDC 09/14/2020. Today's measurements indicate appropriate growth. Presentation: Transverse, head maternal left side. Placenta anterior, grade 0, without evidence of placenta previa. Umbilical cord inserts at the margin of the placenta. heart rate is recorded at 161 beats per minute. Amniotic fluid is subjectively normal. Closed cervical length is measured at 3.5 cm. Biometry chart: BPD: 44 mm, 19 weeks 3 days, 42nd percentile. HC: 168 mm, 19 weeks 3 days, 41st percentile AC: 143 mm, 19 weeks 5 days, 49th percentile Femur length: 31 mm, 19 weeks 5 days, 49th percentile HC to AC ratio: 1.17, normal range 1.06-1.25. Estimated weight: 304g, 41st percentile. anatomy: Cranium: Grossly normal Lateral Ventricles/Choroid Plexus: Grossly normal Posterior Fossa/Cerebellum: Grossly normal Nose/lips/profile: Grossly normal Four chamber heart: Grossly normal Right ventricular outflow tract: Grossly normal Left ventricular outflow tract: Grossly normal Left-sided stomach: Grossly normal Kidneys: Grossly normal Bladder: Grossly normal Cord Insertion: Grossly normal 3 vessel cord: Grossly normal Spine: Grossly normal IMPRESSION: Viable single intrauterine gestation as above. <Electronically signed by Je Galindo > 04/25/20 [id number]
== END ==
LOC: M WHC 12:02
PROVIDERS: ATTEND Advanced Practice Midwife
DX: Z34.82 Encounter for supervision of other normal pregnancy, second trimester (principal)

== ENCOUNTER 2020-06-03 17:14 | Outpatient (CLI) | payer OTHER, MEDICAID ==
[~2020-06-03] VITALS: Ht 167.6 cm; Wt 74.7 kg
[2020-06-03] MEDS ORDERED: LACTATED RINGER'S 1000 ML IV ONE (18:15)
--- NOTE | 2020-06-03 18:32 | IPNPDOC ---
Text Note Date of Service The patient was seen on 06/03/20. NOTE Outpatient Subjective: Rhea is a 24 y/o ELISABET 09/14/2020, 25w2d, who presents to labor and delivery with a CC "I feel like I have a kidney stone again". Reports sharp, left flank pain that started this afternoon. She tried taking Tylenol and drinking large amount of water without relief. Reports frequency of urination but not unchanged from her normal when . Denies blood in urine, urgency. Reports active movement. Denies LOF, vaginal bleeding, contractions. Recent exposure to COVID-19, was with her [id number] for 15min unmasked on 05/29/20, he tested positive on 05/30/20, both are currently asymptomatic, she has not been tested. Medical hx.: Kidney stones, urinary retention, bilateral ovarian cysts, migraines, scoliosis, mononucleosis, concussion x3, constipation Surgical hx.: 10/2018 cystoscopy, right ureteroscopy with laser lithotripsy and basket extraction, right retrograde pyelogram, right stent placed; 12/17/2018 cystoscopy with right stent removal Family hx.: Mother - GERD, hiatal hernia; Maternal Grandparents- HTN; PGM: AMI, cirrhosis liver (non Etoh), bladder cancer Social hx.: Single, non-smoker, denies drug and alcohol use Objective: Vital Signs: normotensive, afebrile General: Alert and oriented x3, affect and mood appropriate. Respiratory: Regular rate, no accessory muscle use. Abdominal: Gravid, soft, non-tender. No UC on TOCO or felt by patient. Genitourinary: +CVA tenderness on left side only. Fetus: 150bpm baseline, moderate variability, appropriate for gestational age Extremities: No edema. No calf tenderness. Assessment: Possible Renal Calculi. PUI for COVID-19. Not in active labor. No SROM. Plan: Renal Ultrasound Urinalysis and Culture NST Start IV per unit policy Lactated Ringers 1000mL bolus, then saline lock Strain urine Pain management PRN COVID testing Dr. King aware of plan and patient on unit Mirella Garcia CNM Jun 03, 2020 18:32
[2020-06-03 18:54] LABS: APPEARANCE, URINE HAZY (CLEAR); BACTERIA, URINE AUTO NEGATIVE (NEGATIVE); BILIRUBIN, URINE AUTO NEGATIVE (NEGATIVE); BLOOD, URINE BLOOD 2+ (NEGATIVE); COLOR, URINE YELLOW (YELLOW); GLUCOSE, URINE (UA) AUTO NEGATIVE (NEGATIVE); KETONE, URINE AUTO NEGATIVE (NEGATIVE); LEUKOCYTE ESTERASE, URINE AUTO NEGATIVE (NEGATIVE); MUCUS, URINE SMALL (NEGATIVE); NITRITE, URINE AUTO NEGATIVE (NEGATIVE); PROTEIN, URINE AUTO NEGATIVE (NEGATIVE); RBC, URINE AUTO 82 /HPF (0-3); SPECIFIC GRAVITY URINE AUTO 1.018 (1.002-1.035); SQUAMOUS EPITHELIAL CELL UR AU 2 /HPF (0-6); UROBILINOGEN, URINE AUTO 0.2 mg/dL (0.0-2.0); WBC, URINE AUTO 1 /HPF (0-3)
[2020-06-03 19:07] VITALS: BP 125/67
[2020-06-03] MEDS ORDERED: PERCOCET 5MG/325MG TAB PO ONE ×2 (19:15→23:30)
--- NOTE | 2020-06-03 20:31 | REPVR ---
PROCEDURE INFORMATION: Exam: US Retroperitoneal Limited, Kidneys Exam date and time: 06/03/2020 7:47 PM Age: 24 years old Clinical indication: Abdominal pain; Left lower quadrant (llq); ; Patient HX: Patient states only lt flank pain, no pain on RT side; Additional info: Left flank pain. PT is pui TECHNIQUE: Imaging protocol: Real-time ultrasound of the retroperitoneum with image documentation. Examination was focused on the kidneys. COMPARISON: RETROPERITONEAL COMPLETE US 04/06/2016 4:20 PM FINDINGS: Right kidney: The right kidney measures 11.7 cm in length. There is moderate right hydronephrosis. Left kidney: Left kidney measures 12.7 cm in length. There is mild left hydronephrosis. Blood flow is detected. Bladder: The urinary bladder is normal in appearance. Bilateral ureteral jets are detected. Gestation: heart rate is 139 bpm. IMPRESSION: There is moderate right and mild left hydronephrosis. No renal calculi are apparent. Electronically signed by: Junie Skaggs On 06/03/2020 20:31:34 PM
[2020-06-03 21:07] VITALS: BP 131/63
[2020-06-03 23:05] VITALS: BP 103/51
[2020-06-03] MEDS ORDERED: OXYC1TAB23 PO (23:33)
--- NOTE | 2020-06-03 23:41 | IPNPDOC ---
Text Note Date of Service The patient was seen on 06/03/20. NOTE Outpatient Reports pain improved with Percocet, 1 more dose to be given prior to discharge. Has ride. One random episode of vomiting but desires discharge home. Reports active movement. Denies LOF, vaginal bleeding, contractions. FHR 135bpm baseline, moderate variability, appropriate for gestational age. No UC on Christine. Reviewed probable diagnosis of kidney lithiasis and at home management. Reviewed increasing water intake, strain urine, and take pain medication as prescribed. Keep all appointments, next appointment 06/14/20. Reviewed warning signs to report and 10 tabs of Percocet sent to pharmacy for pain management. Discharge home per her desire. VS,Fishbone, I+O VS, Fishbone, I+O Vital Signs Date Time Temp Pulse Resp B/P (MAP) Pulse Ox O2 Delivery O2 Flow Rate FiO2 06/03/20 23:05 97.9 93 18 103/51 (68) 06/03/20 19:23 99 Room Air Mirella Garcia CNM Jun 03, 2020 23:41
== END 2020-06-03 23:50 | disposition home or self-care (01) ==
LOC: M LDO 17:14
PROVIDERS: ATTEND Advanced Practice Midwife
DX: O99.891 Other specified diseases and conditions complicating pregnancy (principal); Z87.442 Personal history of urinary calculi; Z3A.25 25 weeks gestation of pregnancy
CPT/HCPCS: 76775; 81001; 87086; G0378; G0463; U0002

== ENCOUNTER → 2020-06-04 | Outpatient (CLI) | payer SELFPAY ==
[~2020-06-04] MED LIST changes: +OXYC1TAB23 PO
== END ==
LOC: M LABSMTC 10:01
PROVIDERS: ATTEND Pediatrics
DX: Z20.822 Contact with and (suspected) exposure to COVID-19 (principal)

== ENCOUNTER → 2020-06-13 | Outpatient (CLI) | payer OTHER, MEDICAID | LOC: M LABSMTC 11:19 | PROVIDERS: ATTEND Pediatrics | DX: Z20.828 Contact with and (suspected) exposure to other viral communicable diseases (principal) ==

== ENCOUNTER → 2020-06-21 | Outpatient (CLI) | payer OTHER, MEDICAID ==
[2020-06-21 16:57] LABS: HEMATOCRIT 32.1 % (36.0-47.0); HEMOGLOBIN 10.3 g/dl (12.0-15.5); MEAN CORPUSCULAR HEMOGLOBIN 29.8 pg (27.0-33.0); MEAN CORPUSCULAR HGB CONC 32.1 g/dl (32.0-36.5); MEAN CORPUSCULAR VOLUME 92.8 fl (80.0-96.0); PLATELET COUNT, AUTOMATED 281 10^3/uL (150-450); RED BLOOD COUNT 3.46 10^6/uL (4.00-5.40); WHITE BLOOD COUNT 11.8 10^3/uL (4.0-10.0)
== END ==
LOC: M LAB 14:42
PROVIDERS: ATTEND Advanced Practice Midwife
DX: Z34.82 Encounter for supervision of other normal pregnancy, second trimester (principal); Z3A.00 Weeks of gestation of pregnancy not specified

== ENCOUNTER → 2020-07-18 | Outpatient (CLI) | payer OTHER, MEDICAID ==
--- NOTE | 2020-07-18 14:03 | REP ---
INDICATION: R/O VASA PREVIA COMPARISON: 04/25/2020 TECHNIQUE: Transabdominal obstetrical ultrasound with color Doppler evaluation. FINDINGS: Examination demonstrates a single live intrauterine in cephalic presentation. motion is identified by technologist. Placenta is noted anterior and grade 2 without evidence for placenta previa or abruption. Amniotic fluid volume is normal. Cervix measures 4.1 cm in length and appears closed. There is no evidence for Vasa previa on current examination. Gestational age by LMP and 1st ultrasound 31 weeks 5 days with ELISABET 09/14/2020. FHR equals 158 beats per minute. QUIANA: 10.8 cm (8.7-24.1) IMPRESSION: Single live advanced gestation in cephalic presentation. No evidence for Vasa previa. <Electronically signed by Dion West > 07/18/20 [id number]
== END ==
LOC: M WHC 13:03
PROVIDERS: ATTEND Advanced Practice Midwife
DX: O43.103 Malformation of placenta, unspecified, third trimester (principal); Z3A.31 31 weeks gestation of pregnancy

== ENCOUNTER 2020-08-01 12:41 | Outpatient (CLI) | payer MEDICAID ==
[~2020-08-01] VITALS: Ht 167.6 cm; Wt 81.8 kg
[~2020-08-01 12:41] MED LIST changes: -CEPH500C PO; -FERR325T3 PO
[2020-08-01] MEDS ORDERED: LACTATED RINGER'S 1000 ML IV ONE (13:00)
[2020-08-01] MEDS ORDERED: LR 1,000 ML IV SCH (13:00)
[2020-08-01 13:05] VITALS: BP 116/71
[2020-08-01] MEDS ORDERED: PROMETHAZINE INJ 25 MG/ML VIAL (J2550) IV ONE (13:25)
[2020-08-01] MEDS ORDERED: BUTORPHANOL 2 MG/ML INJ (J0595) IV ONE (13:25)
--- NOTE | 2020-08-01 13:25 | IPNPDOC ---
Text Note Date of Service The patient was seen on 08/01/20. NOTE Subjective: Rhea is a 24-year-old female who is a at 33.5 weeks gestation with an ELISABET of 09/14/20. She reports having severe flank pain that started last night causing her to not sleep. She also complained of her urine being very dark and odorous. Reports she has a history of kidney stones and thinks that this is what is happening. Reports she is unsure if she is having contractions due to pain in her left side. Reports pain is 6-7/10. Reports active movement. Denies vaginal bleeding or leaking of fluid. PMHx: kidney stones with stent placement and lithotripsy done; migraines; concussion; anxiety SHx: cystoscopy with stent removal FHx: HTN, bladder cancer, cirrhosis Social Hx: , not a smoker, denies drug or alcohol abuse. OBHx: -01/2016: 38.4 weeks of male 7 lbs 7 oz -09/24/18: 38.5 weeks of female 8 lbs 1 oz Objective: FHR: 120, moderate variability, positive accelerations, no decelerations. [place]: none VS and labs: see below. General: Alert and oriented. Appears to be uncomfortable upon arrival. Respiratory: Regular rate and rhythm. No use of accessory muscles. Abdomen: soft and non-tender to touch Extremities: no edema. Assessment: IUP at 33.5 weeks; hydronephrosis; left sided flank pain, not in labor Plan: Renal sono ordered. Urine culture ordered. IV started with 1 liter of LR bolus then 125 cc/hr. Stadol and phenergan ordered IV to help with pain. After patient woke up from Stadol and Phenergan she reports that her pain is gone. Started on Keflex PO and sent to pharmacy. Discharged to home. Reviewed access to care, kick count, labor signs, and danger signs to report. Saline lock removed. VS,Fishbone, I+O VS, Fishbone, I+O Vital Signs Label Value Date Time Patient Temperature 97.9 degrees F 08/01/20 1305 Pulse 105 08/01/20 1305 Respiratory Rate 18 bpm 08/01/20 1305 Blood Pressure Assessment 116/71 (86) 08/01/20 1305 Source Automatic Cuff (NIBP) Item Value Date Time White Blood Count 10.9 10^3/uL H 08/01/20 1333 Red Blood Count 3.57 10^6/uL L 08/01/20 1333 Hemoglobin 10.7 g/dl L 08/01/20 1333 Hematocrit 33.0 % L 08/01/20 1333 Mean Corpuscular Volume 92.4 fl 08/01/20 1333 Mean Corpuscular Hemoglobin 30.0 pg 08/01/20 1333 Mean Corpuscular Hemoglobin Concent 32.4 g/dl 08/01/20 1333 Red Cell Distribution Width 13.5 % 08/01/20 1333 Platelet Count 258 10^3/uL 08/01/20 1333 Item Value Date Time Urine Color STRAW 08/01/20 1433 Urine Appearance CLEAR 08/01/20 1433 Urine pH 7.0 UNITS 08/01/20 1433 Urine Specific [place] 1.005 08/01/20 1433 Urine Protein NEGATIVE mg/dL 08/01/20 1433 Urine Glucose (Auto)(UA) NEGATIVE mg/dL 08/01/20 1433 Urine Ketones (Auto) NEGATIVE mg/dL 08/01/20 1433 Urine Blood 3+ H 08/01/20 1433 Urine Nitrite NEGATIVE 08/01/20 1433 Urine Bilirubin NEGATIVE 08/01/20 1433 Urine Urobilinogen 0.2 mg/dL 08/01/20 1433 Urine Leukocyte Esterase (Auto) NEGATIVE 08/01/20 1433 Urine WBC (Auto) 1 /HPF 08/01/20 1433 Urine RBC (Auto) 50 /HPF H 08/01/20 1433 Urine Hyaline Casts (Auto) 0 /LPF 08/01/20 1433 Urine Bacteria (Auto) 1+ H 08/01/20 1433 Urine Squamous Epithelial Cells 1 /HPF 08/01/20 1433 Urine Mucus (Auto) SMALL 08/01/20 1433 NAME: RHEA WANG DATE OF : 1995 AGE: 24 SEX: F REPORT #: [id number] [facility]CTOR: FELIPE MARRERO CNM Ordered for Date&Time: 08/01/20 1136 cc: [~ rep ct ivnm] Service Date&Time: 08/01/20 1211 EXAMINATION REQUESTED: RENAL US REASON FOR PATIENT VISIT: LT SIDED BACK PAIN REASON FOR EXAM/COMMENT: LT SIDED BACK PAIN INDICATION: LT SIDED BACK PAIN. COMPARISON: None. Abdomen/pelvis CT without IV contrast dated 10/26/2018. TECHNIQUE: Multiple real-time ultrasonographic images of the kidneys. FINDINGS: On the comparison CT there was a calculus in the proximal right ureter and there was right hydronephrosis. Additionally, on the comparison CT there was a nonobstructive calculus in the left kidney. There was no left hydronephrosis. On the study today the kidneys are normal size. The right kidney measures 12.7 x 6.2 x 5.8 cm. The left kidney measures 11.6 x 5.1 x 5.1 cm. Renal cortical echogenicity is normal bilaterally. There are no right renal calculi. There are no left renal calculi identified by ultrasound today. There is right hydronephrosis. There is no left hydronephrosis. There are no solid or cystic renal masses on the right or the left. Bladder: The bladder is incompletely distended and suboptimally evaluated. No bladder calculi are identified, however, evaluation of the bladder is significantly limited. IMPRESSION: No renal calculi on the right or the left. Right hydronephrosis. No hydronephrosis on the left. No solid or cystic renal masses. Limited evaluation of the bladder. <Electronically signed by Je Tim > 08/01/20 1224 FELIPE MARRERO CNM Aug 01, 2020 13:25
[2020-08-01 13:48] LABS: HEMOGLOBIN 10.7 g/dl (12.0-15.5); MEAN CORPUSCULAR HGB CONC 32.4 g/dl (32.0-36.5); MEAN CORPUSCULAR VOLUME 92.4 fl (80.0-96.0); PLATELET COUNT, AUTOMATED 258 10^3/uL (150-450); RED BLOOD COUNT 3.57 10^6/uL (4.00-5.40); WHITE BLOOD COUNT 10.9 10^3/uL (4.0-10.0)
[2020-08-01] MEDS ORDERED: FERR325T3 PO (14:03)
[2020-08-01 15:01] LABS: APPEARANCE, URINE CLEAR (CLEAR); BACTERIA, URINE AUTO 1+ (NEGATIVE); BILIRUBIN, URINE AUTO NEGATIVE (NEGATIVE); BLOOD, URINE BLOOD 3+ (NEGATIVE); COLOR, URINE STRAW (YELLOW); GLUCOSE, URINE (UA) AUTO NEGATIVE (NEGATIVE); KETONE, URINE AUTO NEGATIVE (NEGATIVE); LEUKOCYTE ESTERASE, URINE AUTO NEGATIVE (NEGATIVE); MUCUS, URINE SMALL (NEGATIVE); NITRITE, URINE AUTO NEGATIVE (NEGATIVE); PROTEIN, URINE AUTO NEGATIVE (NEGATIVE); RBC, URINE AUTO 50 /HPF (0-3); SPECIFIC GRAVITY URINE AUTO 1.005 (1.002-1.035); SQUAMOUS EPITHELIAL CELL UR AU 1 /HPF (0-6); UROBILINOGEN, URINE AUTO 0.2 mg/dL (0.0-2.0); WBC, URINE AUTO 1 /HPF (0-3)
[2020-08-01] MEDS ORDERED: CEPH500C PO (16:50)
[2020-08-01] MEDS ORDERED: CEPHALEXIN 500 MG CAP PO ONE (18:00)
== END 2020-08-01 18:25 | disposition home or self-care (01) ==
LOC: M LDO 12:41
PROVIDERS: ATTEND Advanced Practice Midwife
DX: O99.891 Other specified diseases and conditions complicating pregnancy (principal); O26.833 Pregnancy related renal disease, third trimester; N13.30 Unspecified hydronephrosis; Z3A.33 33 weeks gestation of pregnancy
CPT/HCPCS: 59025; 81001; 85027; 87086; 96374; 96375; J0595

== ENCOUNTER → 2020-08-01 | Outpatient (CLI) | payer OTHER, MEDICAID ==
[~2020-08-01] MED LIST changes: +CEPH500C PO; +FERR325T3 PO
--- NOTE | 2020-08-01 12:28 | REP ---
INDICATION: LT SIDED BACK PAIN. COMPARISON: None. Abdomen/pelvis CT without IV contrast dated 10/26/2018. TECHNIQUE: Multiple real-time ultrasonographic images of the kidneys. FINDINGS: On the comparison CT there was a calculus in the proximal right ureter and there was right hydronephrosis. Additionally, on the comparison CT there was a nonobstructive calculus in the left kidney. There was no left hydronephrosis. On the study today the kidneys are normal size. The right kidney measures 12.7 x 6.2 x 5.8 cm. The left kidney measures 11.6 x 5.1 x 5.1 cm. Renal cortical echogenicity is normal bilaterally. There are no right renal calculi. There are no left renal calculi identified by ultrasound today. There is right hydronephrosis. There is no left hydronephrosis. There are no solid or cystic renal masses on the right or the left. Bladder: The bladder is incompletely distended and suboptimally evaluated. No bladder calculi are identified, however, evaluation of the bladder is significantly limited. IMPRESSION: No renal calculi on the right or the left. Right hydronephrosis. No hydronephrosis on the left. No solid or cystic renal masses. Limited evaluation of the bladder. <Electronically signed by Je Tim > 08/01/20 [id number]
== END ==
LOC: M RAD 11:33
PROVIDERS: ATTEND Advanced Practice Midwife
DX: N13.30 Unspecified hydronephrosis (principal); R10.9 Unspecified abdominal pain

== ENCOUNTER → 2020-08-17 | Outpatient (REF) | payer OTHER, MEDICAID ==
[~2020-08-17] MED LIST changes: +CEPH500C PO; +FERR325T3 PO
== END ==
LOC: M SFHCWAGY 13:31
PROVIDERS: ATTEND Advanced Practice Midwife
DX: Z36.89 Encounter for other specified antenatal screening (principal); Z3A.36 36 weeks gestation of pregnancy

== ENCOUNTER 2021-11-29 10:58 | Emergency (ER) | payer MEDICAID, OTHER ==
[~2021-11-29] VITALS: Ht 167.6 cm; Wt 78.5 kg
[~2021-11-29 10:58] MED LIST changes: +ALBU2.5V10; -ALBU83IN; +ETON68IM SC; -NEXP1IMP SC
[2021-11-29] MEDS ORDERED: ONDANSETRON 4MG 2ML VIAL IV ONE (14:05)
[2021-11-29] MEDS ORDERED: NS 1,000 ML IV ONE (14:05)
[2021-11-29 14:45] LABS: BASO # 0.1 10^3/uL (0.0-0.2); BASO % 0.6 % (0.0-1.0); EOS % 0.5 % (0.0-3.0); HEMATOCRIT 38.8 % (36.0-47.0); LYMPH # 1.8 10^3/uL (1.5-5.0); LYMPH % 22.2 % (24.0-44.0); MEAN CORPUSCULAR HEMOGLOBIN 29.5 pg (27.0-33.0); MEAN CORPUSCULAR HGB CONC 33.5 g/dl (32.0-36.5); MONO # 0.4 10^3/uL (0.0-0.8); MONO % 5.1 % (2.0-8.0); NEUTROPHILS # 5.9 10^3/uL (1.5-8.5); NEUTROPHILS % 71.2 % (36.0-66.0); PLATELET COUNT, AUTOMATED 314 10^3/uL (150-450); RED BLOOD COUNT 4.41 10^6/uL (4.00-5.40); WHITE BLOOD COUNT 8.3 10^3/uL (4.0-10.0)
[2021-11-29 15:22] LABS: ALBUMIN 4.1 GM/DL (3.2-5.2); ALT/SGPT 21 U/L (12-78); BILIRUBIN,TOTAL 0.4 MG/DL (0.2-1.0); BLOOD UREA NITROGEN 8 MG/DL (7-18); CALCIUM LEVEL 9.8 MG/DL (8.5-10.1); CARBON DIOXIDE LEVEL 25 MEQ/L (21-32); CHLORIDE LEVEL 106 MEQ/L (98-107); CREATININE FOR GFR 0.69 MG/DL (0.55-1.30); GLOMERULAR FILTRATION RATE > 60.0 (>60); GLUCOSE, FASTING 90 MG/DL (70-100); HCG, SERUM QUANTITATIVE 30651 MIU/ML; POTASSIUM SERUM 4.4 MEQ/L (3.5-5.1); SODIUM LEVEL 138 MEQ/L (136-145); TOTAL PROTEIN 7.5 GM/DL (6.4-8.2)
[2021-11-29] MEDS ORDERED: OLOPATADINE 0.1% OPHTH SOL 5ML(PATANOL) OD STA (15:59)
[2021-11-29] MEDS ORDERED: ONDA4TAB6 PO (16:48)
[2021-11-29 17:20] VITALS: BP 116/60
== END 2021-11-29 17:35 | disposition home or self-care (01) ==
LOC: M ED 10:58
DX: O26.91 Pregnancy related conditions, unspecified, first trimester (principal); R42 Dizziness and giddiness; R11.0 Nausea; Z87.42 Personal history of other diseases of the female genital tract; O99.511 Diseases of the respiratory system complicating pregnancy, first trimester; Z85.3 Personal history of malignant neoplasm of breast; Z88.1 Allergy status to other antibiotic agents; Z79.899 Other long term (current) drug therapy; Z3A.01 Less than 8 weeks gestation of pregnancy
CPT/HCPCS: 80053; 84702; 85025; 93005; 96361; 96374; 99284; J2405

== ENCOUNTER → 2022-02-06 | Outpatient (CLI) | payer OTHER, MEDICAID ==
[~2022-02-06] MED LIST changes: +ONDA4TAB6 PO
[2022-02-06 14:01] LABS: BASO % 0.3 % (0.0-1.0); EOS # 0.1 10^3/uL (0.0-0.5); EOS % 1.4 % (0.0-3.0); HEMOGLOBIN 12.1 g/dl (12.0-15.5); LYMPH # 1.8 10^3/uL (1.5-5.0); LYMPH % 17.7 % (24.0-44.0); MEAN CORPUSCULAR HEMOGLOBIN 29.4 pg (27.0-33.0); MEAN CORPUSCULAR HGB CONC 32.7 g/dl (32.0-36.5); MEAN CORPUSCULAR VOLUME 89.8 fl (80.0-96.0); MONO # 0.4 10^3/uL (0.0-0.8); MONO % 4.3 % (2.0-8.0); NEUTROPHILS # 7.5 10^3/uL (1.5-8.5); NEUTROPHILS % 75.8 % (36.0-66.0); PLATELET COUNT, AUTOMATED 330 10^3/uL (150-450); RED BLOOD COUNT 4.12 10^6/uL (4.00-5.40); WHITE BLOOD COUNT 9.9 10^3/uL (4.0-10.0)
[2022-02-06 15:02] LABS: HEPATITIS C VIRUS ABY INDEX < 0.0 INDEX (<0.8); HIV 1&2 SCREEN CENTAUR NEGATIVE (NEGATIVE)
[2022-02-06 15:38] LABS: GC DNA AMPLIFICATION NEGATIVE (NEGATIVE)
== END ==
LOC: M PLALAB 09:46
PROVIDERS: ATTEND Obstetrics & Gynecology
DX: Z34.81 Encounter for supervision of other normal pregnancy, first trimester (principal); Z3A.00 Weeks of gestation of pregnancy not specified

== ENCOUNTER → 2022-02-26 | Outpatient (CLI) | payer MEDICAID | LOC: M WHC 09:20 | PROVIDERS: ATTEND Obstetrics & Gynecology | DX: Z34.81 Encounter for supervision of other normal pregnancy, first trimester (principal) ==

== ENCOUNTER → 2022-03-05 | Outpatient (REF) | payer OTHER, MEDICAID | LOC: M SFHCWAGY 10:16 | PROVIDERS: ATTEND Obstetrics & Gynecology | DX: Z34.82 Encounter for supervision of other normal pregnancy, second trimester (principal) ==

== ENCOUNTER → 2022-03-12 | Outpatient (CLI) | payer MEDICAID | LOC: M WHC 08:05 | PROVIDERS: ATTEND Obstetrics & Gynecology | DX: Z34.82 Encounter for supervision of other normal pregnancy, second trimester (principal); Z3A.21 21 weeks gestation of pregnancy ==

== ENCOUNTER → 2022-04-03 | Outpatient (CLI) | payer MEDICAID ==
[2022-04-03 14:05] LABS: HEMATOCRIT 33.5 % (36.0-47.0); HEMOGLOBIN 10.7 g/dl (12.0-15.5); MEAN CORPUSCULAR HEMOGLOBIN 29.7 pg (27.0-33.0); MEAN CORPUSCULAR HGB CONC 31.9 g/dl (32.0-36.5); MEAN CORPUSCULAR VOLUME 93.1 fl (80.0-96.0); PLATELET COUNT, AUTOMATED 313 10^3/uL (150-450); WHITE BLOOD COUNT 11.5 10^3/uL (4.0-10.0)
[2022-04-03 15:49] LABS: GC DNA AMPLIFICATION NEGATIVE (NEGATIVE)
== END ==
LOC: M PLALAB 09:16
PROVIDERS: ATTEND Obstetrics & Gynecology
DX: Z34.82 Encounter for supervision of other normal pregnancy, second trimester (principal)

== ENCOUNTER 2022-04-10 22:21 | Outpatient (CLI) | payer OTHER, MEDICAID ==
[~2022-04-10] VITALS: Ht 167.6 cm; Wt 83.8 kg
[2022-04-10 22:41] VITALS: BP 120/58
[2022-04-10] MEDS ORDERED: ACET325C5 PO (22:49)
[2022-04-10] MEDS ORDERED: HOME MED LIST COMPLETE! XX SCH (22:50)
[2022-04-10] MEDS ORDERED: diphenhydrAMINE 50MG CAP PO ONE (22:50)
[2022-04-10] MEDS ORDERED: METOCLOPRAMIDE 5 MG TAB PO ONE (22:50)
[2022-04-11 00:20] VITALS: BP 115/56
[2022-04-11 02:51] VITALS: BP 98/56
[2022-04-11] MEDS ORDERED: REGL5TAB2 PO (02:54)
== END 2022-04-11 02:54 | disposition home or self-care (01) ==
LOC: M LDO 22:21
PROVIDERS: ATTEND Obstetrics & Gynecology
DX: O26.892 Other specified pregnancy related conditions, second trimester (principal); O99.352 Diseases of the nervous system complicating pregnancy, second trimester; G43.909 Migraine, unspecified, not intractable, without status migrainosus; Z3A.25 25 weeks gestation of pregnancy
CPT/HCPCS: 59025; G0463

== ENCOUNTER 2022-04-30 20:02 | Emergency (ER) | payer OTHER, MEDICAID ==
[~2022-04-30] VITALS: Ht 167.6 cm; Wt 81.8 kg
[~2022-04-30 20:02] MED LIST changes: +ACET325C5 PO; +REGL5TAB2 PO
[2022-04-30] MEDS ORDERED: ACETAMINOPHEN 325 MG TAB PO ONE (23:25)
[2022-05-01] MEDS ORDERED: OSELTAMIVIR PHOSPHATE 75 MG CAP (TAMIFLU) PO ONE (00:45)
[2022-05-01] MEDS ORDERED: NS 1,000 ML IV ONE (00:45)
[2022-05-01] MEDS ORDERED: OSEL75CA PO (01:34)
[2022-05-01 01:46] LABS: BASO % 0.2 % (0.0-1.0); EOS % 0.2 % (0.0-3.0); HEMATOCRIT 27.9 % (36.0-47.0); HEMOGLOBIN 9.1 g/dl (12.0-15.5); LYMPH # 0.6 10^3/uL (1.5-5.0); LYMPH % 5.6 % (24.0-44.0); MEAN CORPUSCULAR HEMOGLOBIN 29.2 pg (27.0-33.0); MEAN CORPUSCULAR HGB CONC 32.6 g/dl (32.0-36.5); MEAN CORPUSCULAR VOLUME 89.4 fl (80.0-96.0); MONO # 0.7 10^3/uL (0.0-0.8); MONO % 7.5 % (2.0-8.0); NEUTROPHILS # 8.4 10^3/uL (1.5-8.5); NEUTROPHILS % 85.6 % (36.0-66.0); PLATELET COUNT, AUTOMATED 207 10^3/uL (150-450); RED BLOOD COUNT 3.12 10^6/uL (4.00-5.40); WHITE BLOOD COUNT 9.8 10^3/uL (4.0-10.0)
[2022-05-01 02:23] LABS: BLOOD UREA NITROGEN 6 MG/DL (9-23); CARBON DIOXIDE LEVEL 21 MMOL/L (20-31); CHLORIDE LEVEL 103 MMOL/L (98-107); GLOMERULAR FILTRATION RATE > 60.0 (>60); GLUCOSE, FASTING 90 MG/DL (60-100); POTASSIUM SERUM 3.7 MMOL/L (3.5-5.1); SODIUM LEVEL 134 MMOL/L (136-145)
[2022-05-01 02:40] VITALS: BP 98/55
== END 2022-05-01 02:48 | disposition home or self-care (01) ==
LOC: M ED 20:02
DX: O98.513 Other viral diseases complicating pregnancy, third trimester (principal); J09.X2 Influenza due to identified novel influenza A virus with other respiratory manifestations; O99.513 Diseases of the respiratory system complicating pregnancy, third trimester; Z3A.28 28 weeks gestation of pregnancy; Z88.1 Allergy status to other antibiotic agents; Z79.899 Other long term (current) drug therapy

== ENCOUNTER → 2022-05-09 | Outpatient (REF) | payer OTHER, MEDICAID ==
[~2022-05-09] MED LIST changes: +OSEL75CA PO
== END ==
LOC: M PLALAB 09:03
PROVIDERS: ATTEND Obstetrics & Gynecology
DX: R82.90 Unspecified abnormal findings in urine (principal)

== ENCOUNTER → 2022-06-04 | Outpatient (CLI) | payer OTHER, MEDICAID | LOC: M RAD 09:35 | PROVIDERS: ATTEND Advanced Practice Midwife | DX: Z34.93 Encounter for supervision of normal pregnancy, unspecified, third trimester (principal); U07.1 COVID-19 ==

== ENCOUNTER → 2022-06-05 | Outpatient (REF) | payer OTHER, MEDICAID ==
[2022-06-05 14:53] LABS: APPEARANCE, URINE MANUAL CLEAR (CLEAR); BILIRUBIN, URINE MANUAL NEGATIVE (NEGATIVE); BLOOD URINE MANUAL NEGATIVE (NEGATIVE); COLOR, URINE MANUAL YELLOW (YELLOW); GLUCOSE, URINE (UA) MANUAL NEGATIVE (NEGATIVE); KETONE, URINE MANUAL NEGATIVE (NEGATIVE); LEUKOCYTE ESTERASE, URINE MAN POSITIVE (NEGATIVE); NITRITE, URINE MANUAL NEGATIVE (NEGATIVE); PROTEIN, URINE MANUAL NEGATIVE (NEGATIVE); UROBILINOGEN, URINE MANUAL NORMAL (NORMAL)
[2022-06-05 15:25] LABS: BACTERIA, URINE LARGE AMOUNT; MUCUS, URINE LARGE AMOUNT (NEGATIVE); SQUAMOUS EPITHELIAL CELL URINE SMALL AMOUNT /hpf (SMALL AMT); WBC, URINE 20-30 /hpf (0-3)
== END ==
LOC: M SFHCWAGY 13:14
PROVIDERS: ATTEND Obstetrics & Gynecology
DX: R10.9 Unspecified abdominal pain (principal)

== ENCOUNTER → 2022-06-19 | Outpatient (REF) | payer OTHER, MEDICAID | LOC: M SFHCWAGY 13:03 | PROVIDERS: ATTEND Advanced Practice Midwife | DX: Z34.93 Encounter for supervision of normal pregnancy, unspecified, third trimester (principal) ==

== ENCOUNTER 2022-07-05 10:02 | Outpatient (CLI) | payer OTHER, MEDICAID ==
[~2022-07-05] VITALS: Ht 167.6 cm; Wt 85.3 kg
[2022-07-05 10:21] VITALS: BP 119/71
[2022-07-05] MEDS ORDERED: HOME MED LIST COMPLETE! XX SCH (10:40)
[2022-07-05] MEDS ORDERED: ONDANSETRON 4MG 2ML VIAL IV ONE (10:50)
[2022-07-05] MEDS ORDERED: LR 1,000 ML IV ONE (10:50)
[2022-07-05 11:09] VITALS: BP 118/68
[2022-07-05 12:37] LABS: APPEARANCE, URINE HAZY (CLEAR); BILIRUBIN, URINE AUTO NEGATIVE (NEGATIVE); BLOOD, URINE BLOOD 1+ (NEGATIVE); COLOR, URINE YELLOW (YELLOW); GLUCOSE, URINE (UA) AUTO NEGATIVE (NEGATIVE); KETONE, URINE AUTO 1+ mg/dL (NEGATIVE); LEUKOCYTE ESTERASE, URINE AUTO NEGATIVE (NEGATIVE); NITRITE, URINE AUTO NEGATIVE (NEGATIVE); PROTEIN, URINE AUTO 1+ mg/dL (NEGATIVE); SPECIFIC GRAVITY URINE AUTO 1.018 (1.002-1.035); UROBILINOGEN, URINE AUTO 0.2 mg/dL (0.0-2.0)
[2022-07-05 12:41] LABS: AMORPHOUS SEDIMENT SMALL (NEGATIVE); BACTERIA, URINE AUTO NEGATIVE (NEGATIVE); MUCUS, URINE LARGE (NEGATIVE); RBC, URINE AUTO 9 /HPF (0-3); SQUAMOUS EPITHELIAL CELL UR AU 5 /HPF (0-6); WBC, URINE AUTO 5 /HPF (0-3)
[2022-07-05 12:59] VITALS: BP 121/70
[2022-07-05] MEDS ORDERED: PROMETHAZINE 25MG/ML 1ML VIAL IV ONE (13:15)
[2022-07-05 13:35] LABS: HEMATOCRIT 30.6 % (36.0-47.0); HEMOGLOBIN 9.5 g/dl (12.0-15.5); MEAN CORPUSCULAR VOLUME 86.9 fl (80.0-96.0); PLATELET COUNT, AUTOMATED 267 10^3/uL (150-450); RED BLOOD COUNT 3.52 10^6/uL (4.00-5.40); WHITE BLOOD COUNT 15.5 10^3/uL (4.0-10.0)
[2022-07-05] MEDS ORDERED: MULTIVITAMIN -ADULT INJECTION 10 ML, THIAMINE INJection 100 MG, FOLIC ACID 1 MG in NS 1... IV ONE (16:00)
[2022-07-05 16:31] VITALS: BP 131/63
[2022-07-05] MEDS: ONDANSETRON 4MG 2ML VIAL IV SCH ×2 (17:23→21:34)
[2022-07-05 18:10] VITALS: BP 112/55
[2022-07-05] MEDS ORDERED: ACETAMINOPHEN 1000MG 100ML IV BAG IV ONE (19:00)
[2022-07-05] MEDS: PROMETHAZINE 25MG/ML 1ML VIAL IV PRN (19:59)
[2022-07-06] MEDS ORDERED: ACETAMINOPHEN 500 MG TAB PO PRN (01:00)
[2022-07-06] MEDS: ONDANSETRON 4MG 2ML VIAL IV SCH ×3 (01:44→06:40)
[2022-07-06] MEDS: PROMETHAZINE 25MG/ML 1ML VIAL IV PRN (01:49)
[2022-07-06 07:20] VITALS: BP 120/55
[2022-07-06 08:55] VITALS: BP 130/60
== END 2022-07-06 09:30 | disposition home or self-care (01) ==
LOC: M LDO 10:02
PROVIDERS: ATTEND Obstetrics & Gynecology
DX: O21.9 Vomiting of pregnancy, unspecified (principal); O26.893 Other specified pregnancy related conditions, third trimester; R19.7 Diarrhea, unspecified; Z3A.37 37 weeks gestation of pregnancy
CPT/HCPCS: 36415; 59025; 81001; 85027; 87486; 87581; 87633; 87798; 96374; 96376; G0463; J0131; J2405; J2550; J3411

== ENCOUNTER 2022-07-18 22:47 | Inpatient (IN) | payer OTHER, MEDICAID ==
[~2022-07-18] VITALS: Ht 167.6 cm; Wt 88.2 kg
[2022-07-18] MEDS ORDERED: HOME MED LIST COMPLETE! XX SCH (23:05)
[2022-07-18 23:06] VITALS: BP 131/69
[2022-07-18] MEDS ORDERED: LACTATED RINGER'S 1000 ML IV STA (23:30)
[2022-07-18] MEDS ORDERED: OXYTOCIN INJ 10UNITS/ML 1ML VIAL IM PRN (23:30)
[2022-07-18] MEDS ORDERED: METHYLERGONOVINE MALEATE 0.2MG/ML 1ML VIAL IM PRN (23:30)
[2022-07-18] MEDS ORDERED: CARBOPROST TROMETHAMINE 250 MCG/ML AMP IM PRN (23:30)
[2022-07-18] MEDS ORDERED: LIDOCAINE 1% MDV 20ML VIAL INFIL PRN (23:30)
[2022-07-18] MEDS ORDERED: TRANEXAMIC ACID INJection 1,000 MG in NS 100 ML IV PRN (23:30)
[2022-07-18] MEDS ORDERED: OXYTOCIN DRIP 30 UNITS in IV 1 EA IV PRN ×4 (23:30)
[2022-07-18 23:52] LABS: HEMATOCRIT 26.8 % (36.0-47.0); HEMOGLOBIN 8.7 g/dl (12.0-15.5); MEAN CORPUSCULAR HEMOGLOBIN 27.1 pg (27.0-33.0); MEAN CORPUSCULAR HGB CONC 32.5 g/dl (32.0-36.5); MEAN CORPUSCULAR VOLUME 83.5 fl (80.0-96.0); PLATELET COUNT, AUTOMATED 309 10^3/uL (150-450); RED BLOOD COUNT 3.21 10^6/uL (4.00-5.40); WHITE BLOOD COUNT 16.4 10^3/uL (4.0-10.0)
[2022-07-19] VITALS (31 sets, daily range): BP systolic 82–136; BP diastolic 44–77
[2022-07-19] MEDS ORDERED: FENTANYL/ROPIVACAINE/NACL BAG 100 ML EPIDURAL SCH (00:40)
[2022-07-19] MEDS ORDERED: EPIDURAL/PCA KEYS XX PRN (00:40)
[2022-07-19] MEDS ORDERED: ONDANSETRON 4MG 2ML VIAL IV PRN (00:40)
[2022-07-19] MEDS ORDERED: LR 500 ML IV PRN (00:40)
[2022-07-19] MEDS ORDERED: NALOXONE INJ 0.4MG/1ML VIAL IV PRN (00:40)
[2022-07-19] MEDS ORDERED: diphenhydrAMINE 50MG/ML VIAL IV PRN (00:40)
[2022-07-19] MEDS: LR 1,000 ML IV SCH ×2 (00:49→03:12)
[2022-07-19] MEDS ORDERED: OXYTOCIN DRIP 30 UNITS in IV 1 EA IV SCH ×2 (01:25→04:05)
[2022-07-19] MEDS: ePHEDrine SULFATE 25 MG/5 ML(5MG/ML) SYRINGE IVP PRN ×2 (01:46→02:40)
[2022-07-19] MEDS ORDERED: OXYTOCIN 30UNITS IN 0.9% NaCl 500ML IV BAG As Ordered ONE (03:31)
[2022-07-19] MEDS ORDERED: DIBUCAINE 1% OINTMENT 30GM TOP PRN (04:05)
[2022-07-19] MEDS ORDERED: ACETAMINOPHEN TAB 650MG DOSE (2X325MG) PO PRN (04:05)
[2022-07-19] MEDS ORDERED: METHYLERGONOVINE MALEATE 0.2 MG TAB PO PRN (04:05)
[2022-07-19] MEDS ORDERED: IBUPROFEN 600MG TAB PO PRN (04:05)
[2022-07-19] MEDS ORDERED: DOCUSATE SODIUM 100MG CAPSULE PO PRN (04:05)
[2022-07-19] MEDS ORDERED: RHOGAM 300MCG (1500IU) INJ IM SCH (04:05)
[2022-07-19] MEDS: ACETAMINOPHEN 500 MG TAB PO PRN ×3 (04:19→20:51)
[2022-07-19] MEDS: PRENATAL VITAMINS CHEWABLE TABLET PO SCH (09:00)
[2022-07-19 10:46] LABS: HEMATOCRIT 26.2 % (36.0-47.0); HEMOGLOBIN 8.2 g/dl (12.0-15.5); MEAN CORPUSCULAR HEMOGLOBIN 26.7 pg (27.0-33.0); MEAN CORPUSCULAR HGB CONC 31.3 g/dl (32.0-36.5); MEAN CORPUSCULAR VOLUME 85.3 fl (80.0-96.0); PLATELET COUNT, AUTOMATED 256 10^3/uL (150-450); RED BLOOD COUNT 3.07 10^6/uL (4.00-5.40); WHITE BLOOD COUNT 18.1 10^3/uL (4.0-10.0)
[2022-07-19] MEDS: IBUPROFEN 800 MG TAB PO PRN (15:48)
[2022-07-20] MEDS: IBUPROFEN 800 MG TAB PO PRN ×3 (02:16→19:52)
[2022-07-20 02:23] VITALS: BP 125/75
[2022-07-20] MEDS: ACETAMINOPHEN 500 MG TAB PO PRN ×3 (02:53→20:59)
[2022-07-20 06:00] VITALS: BP 132/61
[2022-07-20] MEDS: PRENATAL VITAMINS CHEWABLE TABLET PO SCH (08:38)
[2022-07-20 18:00] VITALS: BP 128/74
[2022-07-21 05:49] VITALS: BP 113/60
[2022-07-21] MEDS: PRENATAL VITAMINS CHEWABLE TABLET PO SCH (08:39)
[2022-07-21] MEDS ORDERED: MEASLES,MUMPS,RUBELLA VACCINE INJ (MMR-II) SC.IMMUN ONE (09:00)
== END 2022-07-21 13:08 | disposition home or self-care (01) | DRG 560 ==
LOC: M LDO 22:47 → M LDI 23:28 → M OBS 07-19 06:29
PROVIDERS: ADMIT Advanced Practice Midwife; ATTEND Advanced Practice Midwife
PROC: 10E0XZZ Delivery of Products of Conception, External Approach (ICD-10-PCS; principal; 2022-07-19)
DX: O69.81X0 Labor and delivery complicated by cord around neck, without compression, not applicable or unspecified (principal); Z88.1 Allergy status to other antibiotic agents; Z3A.39 39 weeks gestation of pregnancy; Z37.0 Single live birth

== ENCOUNTER 2023-01-04 08:01 | Emergency (ER) | payer MEDICAID, OTHER ==
[~2023-01-04] VITALS: Ht 167.6 cm; Wt 78.7 kg
[2023-01-04] MEDS ORDERED: PROZ20CA11 PO (08:56)
[2023-01-04] MEDS ORDERED: IRON325T9 PO (08:56)
[2023-01-04] MEDS ORDERED: ONDANSETRON 4MG 2ML VIAL IV ONE (09:20)
[2023-01-04] MEDS ORDERED: KETOROLAC 30 MG/ML 1ML VIAL IV ONE (09:20)
[2023-01-04] MEDS ORDERED: diphenhydrAMINE 50MG/ML VIAL IV ONE (09:20)
[2023-01-04] MEDS ORDERED: NS 1,000 ML IV ONE (09:20)
[2023-01-04 11:02] VITALS: BP 109/60; TEMP 97.4; O2SAT 100
== END 2023-01-04 11:05 | disposition home or self-care (01) ==
LOC: M ED 09:01
DX: G43.909 Migraine, unspecified, not intractable, without status migrainosus (principal); R33.9 Retention of urine, unspecified; D64.9 Anemia, unspecified; Z87.442 Personal history of urinary calculi; Z87.441 Personal history of nephrotic syndrome; Z88.1 Allergy status to other antibiotic agents; Z79.899 Other long term (current) drug therapy
CPT/HCPCS: 96374; 96375; 99284; J1200; J1885; J2405

== ENCOUNTER 2023-03-29 20:32 | Emergency (ER) | payer MEDICAID ==
[~2023-03-29] VITALS: Ht 167.6 cm; Wt 77.2 kg
[~2023-03-29 20:32] MED LIST changes: +IRON325T9 PO; +PROZ20CA11 PO
[2023-03-29] MEDS ORDERED: ACET32TAB PO (20:42)
[2023-03-29 22:12] LABS: BASO # 0.1 10^3/uL (0.0-0.2); BASO % 0.5 % (0.0-1.0); EOS # 0.1 10^3/uL (0.0-0.5); EOS % 1.1 % (0.0-3.0); HEMATOCRIT 38.9 % (36.0-47.0); LYMPH # 2.3 10^3/uL (1.5-5.0); LYMPH % 25.1 % (24.0-44.0); MEAN CORPUSCULAR HEMOGLOBIN 29.5 pg (27.0-33.0); MEAN CORPUSCULAR HGB CONC 33.4 g/dl (32.0-36.5); MEAN CORPUSCULAR VOLUME 88.2 fl (80.0-96.0); MONO # 0.7 10^3/uL (0.0-0.8); MONO % 7.5 % (2.0-8.0); NEUTROPHILS % 65.6 % (36.0-66.0); PLATELET COUNT, AUTOMATED 252 10^3/uL (150-450); RED BLOOD COUNT 4.41 10^6/uL (4.00-5.40); WHITE BLOOD COUNT 9.2 10^3/uL (4.0-10.0)
[2023-03-29 22:45] LABS: BLOOD UREA NITROGEN 15 MG/DL (9-23); CARBON DIOXIDE LEVEL 26 MMOL/L (20-31); CREATININE FOR GFR 0.84 MG/DL (0.55-1.30); GLOMERULAR FILTRATION RATE > 60.0 (>60); GLUCOSE, FASTING 96 MG/DL (60-100); POTASSIUM SERUM 4.6 MMOL/L (3.5-5.1); SODIUM LEVEL 142 MMOL/L (136-145)
[2023-03-29 22:51] LABS: CHLORIDE LEVEL 106 MMOL/L (98-107)
[2023-03-29] MEDS ORDERED: ONDANSETRON 4MG 2ML VIAL IV ONE (23:55)
[2023-03-29] MEDS ORDERED: KETOROLAC 30 MG/ML 1ML VIAL IV ONE (23:55)
[2023-03-30] MEDS ORDERED: FLOM0.4C39 PO (01:34)
[2023-03-30] MEDS ORDERED: HYDR-3713 PO (01:34)
[2023-03-30] MEDS ORDERED: IBUP-1022 PO (01:34)
[2023-03-30] MEDS ORDERED: ONDA4TAB6 PO (01:34)
[2023-03-30] MEDS ORDERED: NORCO 5/325MG TABLET (HOME DOSE PACK) PO ONE (01:35)
[2023-03-30 01:40] VITALS: BP 124/62; TEMP 97.6; O2SAT 98
== END 2023-03-30 01:44 | disposition home or self-care (01) ==
LOC: M ED 20:32
DX: N21.1 Calculus in urethra (principal); Z87.442 Personal history of urinary calculi; Z79.899 Other long term (current) drug therapy; Z88.1 Allergy status to other antibiotic agents
CPT/HCPCS: 74176; 80048; 81001; 84702; 85025; 87086; 96374; 96375; 99284; J1885; J2405

== ENCOUNTER 2023-04-02 11:23 | Observation (INO) | payer MEDICAID ==
[~2023-04-02] VITALS: Ht 167.6 cm; Wt 78.0 kg
[~2023-04-02 11:23] MED LIST changes: +ACET32TAB PO; +FLOM0.4C39 PO; +HYDR-3713 PO; +IBUP-1022 PO
[2023-04-02 13:37] LABS: BASO % 0.4 % (0.0-1.0); EOS % 0.6 % (0.0-3.0); HEMATOCRIT 39.1 % (36.0-47.0); HEMOGLOBIN 13.1 g/dl (12.0-15.5); LYMPH # 1.2 10^3/uL (1.5-5.0); LYMPH % 17.8 % (24.0-44.0); MEAN CORPUSCULAR HEMOGLOBIN 29.8 pg (27.0-33.0); MEAN CORPUSCULAR HGB CONC 33.5 g/dl (32.0-36.5); MEAN CORPUSCULAR VOLUME 88.9 fl (80.0-96.0); MONO # 0.5 10^3/uL (0.0-0.8); MONO % 6.8 % (2.0-8.0); NEUTROPHILS # 5.1 10^3/uL (1.5-8.5); NEUTROPHILS % 74.1 % (36.0-66.0); PLATELET COUNT, AUTOMATED 256 10^3/uL (150-450); WHITE BLOOD COUNT 6.9 10^3/uL (4.0-10.0)
[2023-04-02 13:58] LABS: LIPASE 23 U/L (12-53)
[2023-04-02 14:01] LABS: ALBUMIN 4.3 G/DL (3.2-5.2); ALKALINE PHOSPHATASE 109 U/L (46-116); ALT/SGPT 21 U/L (7.0-40); AST/SGOT 12 U/L (<34); BILIRUBIN,DIRECT 0.3 MG/DL (<0.4); BILIRUBIN,TOTAL 0.8 MG/DL (0.3-1.2); BLOOD UREA NITROGEN 12 MG/DL (9-23); CALCIUM LEVEL 9.9 MG/DL (8.5-10.1); CARBON DIOXIDE LEVEL 24 MMOL/L (20-31); CHLORIDE LEVEL 106 MMOL/L (98-107); CREATININE FOR GFR 1.13 MG/DL (0.55-1.30); GLOMERULAR FILTRATION RATE > 60.0 (>60); GLUCOSE, FASTING 84 MG/DL (60-100); POTASSIUM SERUM 4.9 MMOL/L (3.5-5.1); SODIUM LEVEL 140 MMOL/L (136-145); TOTAL PROTEIN 7.7 G/DL (5.7-8.2)
[2023-04-02 14:12] LABS: HCG, SERUM QUALITATIVE NEGATIVE (NEGATIVE)
[2023-04-02] MEDS ORDERED: ONDANSETRON 4MG 2ML VIAL IV ONE (17:25)
[2023-04-02] MEDS ORDERED: KETOROLAC 30 MG/ML 1ML VIAL IV ONE (17:25)
[2023-04-02] MEDS ORDERED: NS 1,000 ML IV ONE (17:25)
[2023-04-02] MEDS ORDERED: TAMSULOSIN 0.4 MG CAP PO ONE (17:25)
[2023-04-02] MEDS ORDERED: PANTOPRAZOLE 40MG VIAL IV ONE (18:35)
[2023-04-02] MEDS ORDERED: SUCRALFATE 1 GM TAB PO ONE (18:35)
[2023-04-02] MEDS ORDERED: MED REC IN PROGRESS XX SCH (20:40)
[2023-04-02] MEDS ORDERED: ONDANSETRON 4MG 2ML VIAL IV PRN (20:55)
[2023-04-02] MEDS ORDERED: HYDR-4571 PO (21:13)
[2023-04-02] MEDS ORDERED: IBUP-1022 PO (21:14)
[2023-04-02] MEDS ORDERED: FLOM0.4C39 PO (21:16)
[2023-04-02] MEDS ORDERED: ONDA4TAB6 PO (21:16)
[2023-04-02] MEDS ORDERED: HOME MED LIST COMPLETE! XX SCH (21:20)
[2023-04-02 22:55] VITALS: BP 131/78; TEMP 97.8; O2SAT 99
[2023-04-03] VITALS (9 sets, daily range): BP systolic 112–130; BP diastolic 58–79; TEMP 96.7–98.7; O2SAT 94–99
[2023-04-03] MEDS ORDERED: NS 1,000 ML IV SCH
[2023-04-03] MEDS: KETOROLAC 30 MG/ML 1ML VIAL IV PRN ×4 (00:17→19:47)
[2023-04-03 06:56] LABS: BLOOD UREA NITROGEN 20 MG/DL (9-23); CARBON DIOXIDE LEVEL 27 MMOL/L (20-31); CHLORIDE LEVEL 105 MMOL/L (98-107); CREATININE FOR GFR 1.11 MG/DL (0.55-1.30); GLOMERULAR FILTRATION RATE > 60.0 (>60); GLUCOSE, FASTING 90 MG/DL (60-100); POTASSIUM SERUM 4.2 MMOL/L (3.5-5.1); SODIUM LEVEL 140 MMOL/L (136-145)
[2023-04-03] MEDS: FLUoxetine 20MG CAP PO SCH (08:31)
[2023-04-03] MEDS: FERROUS SULFATE 325MG TAB PO SCH (08:32)
[2023-04-03] MEDS: PANTOPRAZOLE 40MG VIAL IV SCH (08:32)
[2023-04-03] MEDS: TAMSULOSIN 0.4 MG CAP PO SCH (08:32)
[2023-04-03] MEDS: ACETAMINOPHEN TAB 650MG DOSE (2X325MG) PO PRN (09:12)
[2023-04-03] MEDS ORDERED: ONDANSETRON 4MG 2ML VIAL IV PRN (15:40)
[2023-04-03] MEDS ORDERED: HYDROMORPHONE HCL 0.5 MG/ 0.5 ML SYRINGE IV PRN (15:40)
[2023-04-03] MEDS ORDERED: fentaNYL 100 MCG/2 ML INJECTION IV PRN (15:40)
[2023-04-03] MEDS ORDERED: oxyCODONE 5MG TAB PO PRN (15:40)
[2023-04-03] MEDS ORDERED: ISOVUE-M 300 61% 15ML VIAL As Ordered ONE (15:53)
[2023-04-03] MEDS ORDERED: propofoL 200 MG/20 ML VIAL As Ordered ONE (16:03)
[2023-04-03] MEDS ORDERED: METOCLOPRAMIDE INJ 10MG/2ML VIAL As Ordered ONE (16:03)
[2023-04-03] MEDS ORDERED: LIDOCAINE 2% 100MG/5ML SDV (FOR ANES.) As Ordered ONE (16:03)
[2023-04-03] MEDS ORDERED: MIDAZOLAM INJ 2MG/2ML VIAL As Ordered ONE (16:03)
[2023-04-03] MEDS ORDERED: ONDANSETRON 4MG 2ML VIAL As Ordered ONE (16:03)
[2023-04-03] MEDS ORDERED: fentaNYL 100 MCG/2 ML INJECTION As Ordered ONE (16:03)
[2023-04-03] MEDS ORDERED: ACETAMINOPHEN 1000MG 100ML IV BAG As Ordered ONE (16:04)
[2023-04-03] MEDS ORDERED: ceFAZolin 2 GM/D5W 50 ML IV BAG As Ordered ONE (16:10)
[2023-04-04] MEDS: ACETAMINOPHEN TAB 650MG DOSE (2X325MG) PO PRN (00:28)
[2023-04-04 01:56] VITALS: BP 110/60; TEMP 97; O2SAT 96
[2023-04-04] MEDS: KETOROLAC 30 MG/ML 1ML VIAL IV PRN (02:03)
[2023-04-04 05:27] VITALS: BP 130/65; TEMP 97.3; O2SAT 97
[2023-04-04] MEDS ORDERED: PERCOCET 5MG/325MG TAB PO ONE (08:20)
[2023-04-04] MEDS: PANTOPRAZOLE 40MG VIAL IV SCH (08:27)
[2023-04-04] MEDS: FLUoxetine 20MG CAP PO SCH (08:27)
[2023-04-04] MEDS: TAMSULOSIN 0.4 MG CAP PO SCH (08:27)
[2023-04-04] MEDS: FERROUS SULFATE 325MG TAB PO SCH (08:27)
[2023-04-04] MEDS ORDERED: OXYC1TAB23 PO (09:28)
[2023-04-04 10:00] VITALS: BP 126/71; TEMP 97.4; O2SAT 98
== END 2023-04-04 10:00 | disposition home or self-care (01) ==
LOC: M ED 11:23 → M ED INP 11:24 → CANRESERV 22:46 → ENRESERV 22:46 → M MS4PR 22:56
PROVIDERS: ADMIT Internal Medicine; ATTEND Internal Medicine
DX: N20.1 Calculus of ureter (principal); N17.9 Acute kidney failure, unspecified; F32.A Depression, unspecified; F41.9 Anxiety disorder, unspecified; F60.3 Borderline personality disorder; N31.9 Neuromuscular dysfunction of bladder, unspecified; D50.9 Iron deficiency anemia, unspecified; R10.9 Unspecified abdominal pain; K92.0 Hematemesis; Z87.442 Personal history of urinary calculi; Z88.1 Allergy status to other antibiotic agents; Z79.899 Other long term (current) drug therapy; Z82.5 Family history of asthma and other chronic lower respiratory diseases
CPT/HCPCS: 36415; 52332; 76000; 80048; 80076; 81001; 83690; 84703; 85025; 87086; 87635; 96361; 96374; 96375; 96376; 99284; C1769; C1894; C2617; C9113; J0131; J0690; J1100; J1885; J2250; J2405; J2765; J3010; Q9967

== ENCOUNTER → 2023-04-13 | Outpatient (REF) | payer MEDICAID ==
[~2023-04-13] MED LIST changes: +HYDR-4571 PO
== END ==
LOC: M LAB REF 11:47
PROVIDERS: ATTEND Urology
DX: N20.1 Calculus of ureter (principal)

== ENCOUNTER → 2023-04-15 | Outpatient (REF) | payer MEDICAID ==
[~2023-04-15] MED LIST changes: +NITR100C2 PO; +PHEN1TAB73 PO
[2023-04-15 19:02] LABS: C REACTIVE PROTEIN QUANTITATIV < 0.40 MG/DL (<1.0)
[2023-04-15 19:04] LABS: CHOLESTEROL LEVEL 140 MG/DL (<200); CHOLESTEROL RISK RATIO 3.01 (<5); HDL CHOLESTEROL 46.5 MG/DL (>40); IRON (FE) 44 UG/DL (50-170); LDL CHOLESTEROL 80.7 MG/DL (<100); NON-HDL-C 93.5 MG/DL; PERCENT SATURATION 14.2 % (13.2-45.0); TOTAL IRON BINDING CAPACITY 310 UG/DL (250-425); TRIGLYCERIDES LEVEL 64 MG/DL (<150)
[2023-04-15 19:05] LABS: RHEUMATOID FACTOR QUANT < 3.5 IU/ML (<14); TOTAL 25(OH) VITAMIN D 12.6 NG/ML (20.0-100.0)
[2023-04-15 19:06] LABS: FOLATE 16.3 NG/ML (>5.4); THYROID STIMULATING HORMONE 0.648 uIU/ML (0.55-4.78); VITAMIN B12 LEVEL 480 PG/ML (211-911)
[2023-04-15 19:13] LABS: HEMOGLOBIN A1c 4.9 % (4.0-6.0)
[2023-04-17 16:08] LABS: ANTINUCLEAR ANTIBODIES DIRECT Negative (Negative); EBV AB TO NUCLEAR ANTIGEN <18.0 U/mL (0.0-17.9); EBV VIRAL CAPSID AG IgM <36.0 U/mL (0.0-35.9)
== END ==
LOC: M LAB REF 16:29
PROVIDERS: ATTEND Nurse Practitioner Family
DX: E66.3 Overweight (principal); Z68.27 Body mass index [BMI] 27.0-27.9, adult; M25.50 Pain in unspecified joint; E61.1 Iron deficiency; R20.2 Paresthesia of skin

== ENCOUNTER 2023-04-18 07:12 | Day surgery (SDC) | payer MEDICAID ==
[~2023-04-18] VITALS: Ht 167.6 cm; Wt 76.7 kg
[2023-04-18] MEDS ORDERED: LR 1,000 ML IV SCH (08:20)
[2023-04-18] MEDS ORDERED: LIDOCAINE 1% SDV 5ML VIAL SC PRN (08:20)
[2023-04-18] MEDS ORDERED: MIDAZOLAM INJ 2MG/2ML VIAL As Ordered ONE (08:23)
[2023-04-18] MEDS ORDERED: fentaNYL 100 MCG/2 ML INJECTION As Ordered ONE (08:23)
[2023-04-18] MEDS ORDERED: LIDOCAINE 2% 100MG/5ML SDV (FOR ANES.) As Ordered ONE (08:23)
[2023-04-18] MEDS ORDERED: KETOROLAC 60MG 2ML VIAL As Ordered ONE (08:23)
[2023-04-18] MEDS ORDERED: propofoL 200 MG/20 ML VIAL As Ordered ONE (08:23)
[2023-04-18] MEDS ORDERED: LIDOCAINE 2% 5ML JELLY UROJET As Ordered ONE (08:38)
[2023-04-18] MEDS ORDERED: ceFAZolin 1GM VIAL As Ordered ONE (08:52)
[2023-04-18] MEDS ORDERED: ceFAZolin SOD 2 GM in IV 1 EA IV ONE (09:00)
[2023-04-18] MEDS ORDERED: MACR100C43 PO (09:45)
[2023-04-18] MEDS ORDERED: HYDR-3713 PO (09:45)
[2023-04-18 10:14] VITALS: BP 116/70; TEMP 98; O2SAT 97
== END 2023-04-18 10:30 | disposition home or self-care (01) ==
LOC: M SDC 07:12
PROVIDERS: ATTEND Urology
DX: N20.0 Calculus of kidney (principal); D64.9 Anemia, unspecified; G35 Multiple sclerosis; Z79.899 Other long term (current) drug therapy; J45.909 Unspecified asthma, uncomplicated; Z88.1 Allergy status to other antibiotic agents
CPT/HCPCS: 50590; 74018; 81025; J0690; J1885; J2250; J3010

== ENCOUNTER → 2023-04-22 | Outpatient (CLI) | payer MEDICAID, OTHER | LOC: M EKG 13:36 | PROVIDERS: ATTEND Nurse Practitioner Family | DX: R42 Dizziness and giddiness (principal) ==

== ENCOUNTER → 2023-05-09 | Outpatient (REF) | payer OTHER, MEDICAID | LOC: M SMT 15:46 | PROVIDERS: ATTEND Nurse Practitioner Family | DX: N13.2 Hydronephrosis with renal and ureteral calculous obstruction (principal) ==

== ENCOUNTER → 2023-11-18 | Outpatient (CLI) | payer OTHER ==
[~2023-11-18] MED LIST changes: +FERR325T14 PO; -IRON325T9 PO; +ONDA-282 PO; -ONDA4TAB6 PO
== END ==
LOC: M PLAIMG 09:06
PROVIDERS: ATTEND Urology
DX: N20.0 Calculus of kidney (principal)

== ENCOUNTER → 2024-02-06 | Outpatient (REF) | payer OTHER ==
[2024-02-06 17:40] LABS: PERCENT SATURATION 25.1 % (13.2-45.0)
== END ==
LOC: M LAB REF 16:40
PROVIDERS: ATTEND Nurse Practitioner Family
DX: R20.2 Paresthesia of skin (principal); E61.1 Iron deficiency

== ENCOUNTER → 2024-03-03 | Outpatient (CLI) | payer OTHER | LOC: M LAB 15:03 | PROVIDERS: ATTEND Nurse Practitioner Family | DX: L08.9 Local infection of the skin and subcutaneous tissue, unspecified (principal) ==

== ENCOUNTER → 2024-03-04 | Outpatient (REF) | payer OTHER | LOC: M LAB REF 12:18 | PROVIDERS: ATTEND Nurse Practitioner Family | DX: L08.9 Local infection of the skin and subcutaneous tissue, unspecified (principal) ==

== ENCOUNTER → 2024-05-21 | Outpatient (CLI) | payer OTHER ==
[2024-05-21 16:19] LABS: BASO % 0.5 % (0.0-1.0); EOS # 0.1 10^3/uL (0.0-0.5); EOS % 1.5 % (0.0-3.0); HEMATOCRIT 40.2 % (36.0-47.0); HEMOGLOBIN 13.5 g/dl (12.0-15.5); LYMPH # 2.1 10^3/uL (1.5-5.0); LYMPH % 27.8 % (24.0-44.0); MEAN CORPUSCULAR HEMOGLOBIN 30.1 pg (27.0-33.0); MEAN CORPUSCULAR HGB CONC 33.6 g/dl (32.0-36.5); MEAN CORPUSCULAR VOLUME 89.5 fl (80.0-96.0); MONO # 0.6 10^3/uL (0.0-0.8); MONO % 7.5 % (2.0-8.0); NEUTROPHILS # 4.7 10^3/uL (1.5-8.5); NEUTROPHILS % 62.6 % (36.0-66.0); PLATELET COUNT, AUTOMATED 346 10^3/uL (150-450); RED BLOOD COUNT 4.49 10^6/uL (4.00-5.40); WHITE BLOOD COUNT 7.6 10^3/uL (4.0-10.0)
[2024-05-21 16:25] LABS: ERYTHROCYTE SEDIMENTATION RATE 34 mm/hr (0-20)
[2024-05-21 16:42] LABS: ALBUMIN 4.1 G/DL (3.2-5.2); ALKALINE PHOSPHATASE 112 U/L (35-104); ALT/SGPT 35 U/L (7.0-40); AST/SGOT 22 U/L (<34); BILIRUBIN,TOTAL 0.5 MG/DL (0.3-1.2); BLOOD UREA NITROGEN 13 MG/DL (9-23); CALCIUM LEVEL 9.6 MG/DL (8.5-10.1); CARBON DIOXIDE LEVEL 26 MMOL/L (20-31); CHLORIDE LEVEL 106 MMOL/L (98-107); CREATININE FOR GFR 0.72 MG/DL (0.55-1.30); GLOMERULAR FILTRATION RATE > 60.0 (>60); GLUCOSE, FASTING 92 MG/DL (60-100); POTASSIUM SERUM 4.4 MMOL/L (3.5-5.1); SODIUM LEVEL 140 MMOL/L (136-145); TOTAL PROTEIN 7.6 G/DL (5.7-8.2)
[2024-05-21 16:44] LABS: IMMUNOGLOBULIN A 201.7 MG/DL (40-350)
[2024-05-21 16:45] LABS: IMMUNOGLOBULIN G 1097 MG/DL (650-1600)
[2024-05-21 17:47] LABS: IMMUNOGLOBULIN M 109.9 MG/DL (50-300)
== END ==
LOC: M PLALAB 11:55
PROVIDERS: ATTEND Internal Medicine Infectious Disease
DX: A49.9 Bacterial infection, unspecified (principal)

== ENCOUNTER → 2024-07-31 | Outpatient (CLI) | payer OTHER ==
[~2024-07-31] MED LIST changes: +COLA100C5 PO
== END ==
LOC: M RAD 15:26
PROVIDERS: ATTEND Nurse Practitioner Family
DX: N20.2 Calculus of kidney with calculus of ureter (principal)

== ENCOUNTER 2024-08-02 10:55 | Emergency (ER) | payer OTHER ==
[~2024-08-02] VITALS: Ht 167.6 cm; Wt 83.2 kg
[~2024-08-02 10:55] MED LIST changes: -COLA100C5 PO
[2024-08-02 11:41] LABS: BASO # 0.1 10^3/uL (0.0-0.2); BASO % 0.8 % (0.0-1.0); EOS # 0.1 10^3/uL (0.0-0.5); HEMATOCRIT 36.7 % (36.0-47.0); HEMOGLOBIN 12.1 g/dl (12.0-15.5); LYMPH # 1.9 10^3/uL (1.5-5.0); LYMPH % 30.9 % (24.0-44.0); MEAN CORPUSCULAR HEMOGLOBIN 29.9 pg (27.0-33.0); MEAN CORPUSCULAR VOLUME 90.6 fl (80.0-96.0); MONO # 0.4 10^3/uL (0.0-0.8); MONO % 6.8 % (2.0-8.0); NEUTROPHILS # 3.7 10^3/uL (1.5-8.5); NEUTROPHILS % 60.3 % (36.0-66.0); PLATELET COUNT, AUTOMATED 298 10^3/uL (150-450); RED BLOOD COUNT 4.05 10^6/uL (4.00-5.40); WHITE BLOOD COUNT 6.2 10^3/uL (4.0-10.0)
[2024-08-02 11:43] LABS: KETONE, URINE AUTO RFX NEGATIVE (NEGATIVE); LEUKOCYTE ESTERASE UR AUTO RFX NEGATIVE (NEGATIVE); MUCUS, URINE RFX SMALL (NEGATIVE); NITRITE, URINE AUTO RFX NEGATIVE (NEGATIVE); RBC, URINE AUTO RFX 2 /HPF (0-3); SQUAM EPITHELIAL CELL UR AURFX 10 /HPF (0-6); WBC, URINE AUTO RFX 0 /HPF (0-3)
[2024-08-02 12:05] LABS: BLOOD UREA NITROGEN 12 MG/DL (9-23); CALCIUM LEVEL 8.9 MG/DL (8.5-10.1); CARBON DIOXIDE LEVEL 27 MMOL/L (20-31); CHLORIDE LEVEL 109 MMOL/L (98-107); CREATININE FOR GFR 0.77 MG/DL (0.55-1.30); GLOMERULAR FILTRATION RATE > 60.0 (>60); GLUCOSE, FASTING 90 MG/DL (60-100); POTASSIUM SERUM 4.8 MMOL/L (3.5-5.1); SODIUM LEVEL 143 MMOL/L (136-145)
[2024-08-02] MEDS: KETOROLAC 30 MG/ML 1ML VIAL IV ONE (12:29)
[2024-08-02] MEDS ORDERED: COLA100C5 PO (13:29)
[2024-08-02] MEDS: MAGNESIUM CITRATE 300ML BTL PO ONE (13:41)
[2024-08-02 13:44] VITALS: BP 120/75; TEMP 96.7; O2SAT 98
== END 2024-08-02 13:47 | disposition home or self-care (01) ==
LOC: M ED 10:55
DX: K59.00 Constipation, unspecified (principal); Z87.442 Personal history of urinary calculi; Z88.1 Allergy status to other antibiotic agents; Z97.5 Presence of (intrauterine) contraceptive device; Z79.899 Other long term (current) drug therapy
CPT/HCPCS: 74176; 80048; 81001; 85025; 96374; 99283; J1885

== ENCOUNTER → 2024-08-28 | Outpatient (CLI) | payer OTHER ==
[~2024-08-28] MED LIST changes: +COLA100C5 PO
[2024-08-28 11:42] LABS: BASO # 0.1 10^3/uL (0.0-0.2); BASO % 0.9 % (0.0-1.0); EOS # 0.1 10^3/uL (0.0-0.5); EOS % 1.3 % (0.0-3.0); HEMOGLOBIN 13.2 g/dl (12.0-15.5); LYMPH # 1.9 10^3/uL (1.5-5.0); LYMPH % 34.3 % (24.0-44.0); MEAN CORPUSCULAR HEMOGLOBIN 29.7 pg (27.0-33.0); MEAN CORPUSCULAR VOLUME 89.9 fl (80.0-96.0); MONO # 0.4 10^3/uL (0.0-0.8); MONO % 7.7 % (2.0-8.0); NEUTROPHILS # 3.1 10^3/uL (1.5-8.5); NEUTROPHILS % 55.6 % (36.0-66.0); PLATELET COUNT, AUTOMATED 272 10^3/uL (150-450); RED BLOOD COUNT 4.45 10^6/uL (4.00-5.40); WHITE BLOOD COUNT 5.5 10^3/uL (4.0-10.0)
[2024-08-28 12:10] LABS: BLOOD UREA NITROGEN 10 MG/DL (9-23); CALCIUM LEVEL 9.3 MG/DL (8.5-10.1); CARBON DIOXIDE LEVEL 30 MMOL/L (20-31); CHLORIDE LEVEL 105 MMOL/L (98-107); CREATININE FOR GFR 0.79 MG/DL (0.55-1.30); GLOMERULAR FILTRATION RATE > 90.0 (>60); GLUCOSE, FASTING 98 MG/DL (60-100); POTASSIUM SERUM 4.4 MMOL/L (3.5-5.1); SODIUM LEVEL 141 MMOL/L (136-145)
== END ==
LOC: M LAB 11:09
PROVIDERS: ATTEND Internal Medicine Cardiovascular Disease
DX: I48.0 Paroxysmal atrial fibrillation (principal); I50.9 Heart failure, unspecified